=== PATIENT | male | born 1965 | race Hispanic/Latino ===

== ENCOUNTER 2019-09-30 14:10 | Inpatient (IN) | payer OTHER ==
[2019-09-30 14:54] LABS: #Lymphocytes 0.7 thou/uL (1.20-3.40); #Monocytes 0.3 thou/uL (0.11-0.59); #Neutrophils 2.4 thou/uL (1.40-6.50); %Basophils 0.8 % (0.0-1.0); %Eosinophils 0.5 % (0.0-10.0); %Lymphocytes 20.2 % (21.0-51.0); %Monocytes 8.5 % (0.0-10.0); %Neutrophils 70.1 % (42.0-75.0); Hemoglobin 14.6 g/dL (14.0-18.0); Mean Corpuscular HGB CONC 35.2 g/dL (32.0-36.0); Mean Corpuscular Hemoglobin 31.3 pg (27.0-31.0); Mean Corpuscular Volume 89.2 fL (78.0-98.0); Mean Platelet Volume 7.9 fL (7.4-10.4); Platelet Count 147 thou/uL (130-400); Red Blood Cell (RBC) Count 4.66 mill/uL (4.70-6.10); White Blood Cell (WBC) Count 3.4 thou/uL (4.8-10.8)
--- NOTE | 2019-09-30 15:00 | RAD ---
CHEST ONE VIEW: History: Shortness of breath, his brother is Covid positive and he is living with him. Comparison: 03-22-2018 FINDINGS: Minimal cardiomegaly with post underlying sternotomy. Inspiration is less than optimal with some patc hy alveolar and ground glass opacity changes in the right mid lower lung zone and left mid lung zone which certainly could be consistent with Covid pneumonia. No pleural effusion or confluent lobar pneu monia. IMPRESSION: Minimal patchy bilateral alveolar and ground glass opacity changes as above. This is evidence for chuck ateral atypical pneumonia including the viral pneumonias and Covid 19. POS: [facility]
[2019-09-30 15:14] LABS: ALT (SGPT) 34 U/L (8-55); AST (SGOT) 34 U/L (5-34); Albumin 3.5 g/dL (3.5-5.0); Alkaline Phosphatase 62 U/L (40-110); Anion Gap 13 mmol/L (10-20); BUN (Urea Nitrogen) 20 mg/dL (8.4-25.7); Bilirubin, Total 0.7 mg/dL (0.2-1.2); Calc. Creatinine Clearance 0 mL/min (70-130); Calcium 8.7 mg/dL (7.8-10.44); Carbon Dioxide 23 mmol/L (22-29); Chloride 102 mmol/L (98-107); Estimated GFR-MDRD 67; Globulin 3.3 g/dL (2.4-3.5); Glucose 223 mg/dL (70-105); Protein, Total 6.8 g/dL (6.0-8.3); Sodium 134 mmol/L (136-145)
[2019-09-30 15:37] LABS: CKMB 2.4 ng/mL (0-6.6)
[2019-09-30] MEDS ORDERED: Aspirin Chewable 81 MG TAB ONE (15:39)
[2019-09-30] MEDS ORDERED: Dextrose 50% Abboject 50 ML SYRINGE SLOW IVP PRN (16:57)
[2019-09-30] MEDS ORDERED: Dextrose 5% in Water 1,000 ML IV PRN (16:57)
[2019-09-30] MEDS ORDERED: Nitroglycerin 0.4 MG TAB (25 Tab Bottle) SL PRN (17:00)
[2019-09-30] MEDS ORDERED: Azithromycin 250 MG TAB PO SCH (17:30)
[2019-09-30 18:23] LABS: Troponin I 0.051 ng/mL (< 0.028)
--- NOTE | 2019-09-30 18:30 | HP ---
PRIMARY CARE PROVIDER: Real Hylton MD CHIEF COMPLAINT: Lightheaded. HISTORY OF PRESENT ILLNESS: This is a 54-year-old male with history of coronary artery disease and heart failure, unknown type or severity, diabetes type 2, dyslipidemia, hypertension, gout, who presents to the emergency room with a complaint of lightheadedness. The patient reports 10 days ago the onset of symptoms consistent with COVID. He reports he lives with his brother who was diagnosed with COVID, who developed symptoms at the same time and has subsequently been hospitalized. The patient reports that it has primarily been fevers, chills, body aches, nausea, vomiting, and diarrhea. Only the diarrhea has resolved. He states that he also complains of loss of taste, loss of appetite, and loss of smell. He reports the diarrhea resolved 2 days ago. The nausea and vomiting persist and he has been unable to eat much solid food, and has been able to drink some fluids. Due to not sleeping last night and today feeling lightheaded, he presented to the emergency room. He denies any cough, difficulty breathing, or chest pain. He has been taking Tylenol as needed for fevers. He denies any other medications for the current symptoms. He does state that today he did not take his furosemide, but he has been taking all of his usual medications. In the emergency room, the patient's had a blood pressure of 99/44 at one point in time. He has an x-ray consistent with COVID pneumonia. He received 324 mg of aspirin, 500 mL of normal saline, and hospitalist called for admission. ALLERGIES: NO KNOWN DRUG ALLERGIES. CURRENT MEDICATIONS: This is based on a list in the emergency room: 1. Allopurinol 100 mg daily. 2. Aspirin 81 mg daily. 3. Atorvastatin 40 mg daily. 4. Carvedilol 25 mg 2 tablets b.i.d. 5. Plavix 75 mg daily. 6. Zetia 10 mg daily. 7. Famotidine 20 mg 2 tablets once a day. 8. Furosemide 40 mg daily. 9. Gabapentin 300 mg t.i.d. 10. Glipizide unknown type 5 mg dose unknown how many times he takes in the day. 11. Hydralazine 50 mg t.i.d. 12. Lisinopril 10 mg b.i.d. 13. Metformin 750 mg daily. 14. Nifedipine 90 mg daily. 15. Nitroglycerin 0.4 mg as needed. He reports never using this. 16. Trulicity injections once weekly. PAST MEDICAL HISTORY: 1. Gout. 2. History of coronary artery disease and CABG. 3. Type 2 diabetes. 4. Dyslipidemia. 5. Hypertension. PAST SURGICAL HISTORY: 1. Appendectomy. 2. CABG. SOCIAL HISTORY: The patient denies alcohol or tobacco, lives with his who is his surrogate decision maker and he is a full code. FAMILY HISTORY: Significant for hypertension. REVIEW OF SYSTEMS: Negative for abdominal pain, chest pain, difficulty breathing, or change in urination. Positive only for the presenting complaints of nausea, vomiting, and diarrhea. All remaining review of systems are reviewed and negative. PHYSICAL EXAMINATION: VITAL SIGNS: Most recent blood pressure 148/72, pulse 76, respirations 27, saturations 100% on room air, temperature 98.5. GENERAL: Awake, alert, responsive, not in apparent distress. Able to speak in full sentences. HEENT: Pupils are equal and round. Oral mucosa is pink and dry. He is edentulous. NECK: Supple, nontender. LYMPHATICS: No palpable cervical or supraclavicular lymphadenopathy. LUNGS: Distant lungs sounds. Decreased breath sounds throughout. No audible wheezing, rhonchi, or rales. HEART: Distant heart sounds. No significant murmurs. Regular rhythm and rate. ABDOMEN: Soft with present bowel sounds, nontender, nondistended. EXTREMITIES: No edema, clubbing, or cyanosis. VASCULAR: 2+ dorsalis pedis pulses. SKIN: No visible rashes. NEUROLOGIC: No focal deficits. PSYCHIATRIC: Appears euthymic. LABORATORY DATA: CBC; 3.4, 14.6, 41.6, 147. Chemistry; 134, 4.0, 102, 23, 21.14, 223. T bilirubin 0.7, AST 34, ALT 34, alkaline phosphatase 62, total protein 6.8, albumin 3.5. BNP 145. Troponin 0.059. COVID test performed after evaluation of the patient and it is positive. Chest x-ray is personally reviewed, which shows minimal patchy bilateral alveolar and ground-glass opacity changes consistent with atypical pneumonia including viral pneumonia and COVID-19. EKG is personally reviewed, normal axis, sinus rhythm, inverted T-waves in V4 through V6. The lateral and inferior waves and abnormal R-wave progression. No ST changes. IMPRESSION: 1. COVID pneumonia. 2. Nausea, vomiting, fevers, chills, consistent with above. 3. History of heart failure unknown type or severity. 4. Coronary artery disease with history of coronary artery bypass graft, currently asymptomatic. 5. Diabetes mellitus, not optimally controlled. 6. Indeterminate troponin. 7. Leukopenia consistent with COVID pneumonia. 8. Dyslipidemia. 9. Hypertension. 10. Gout, asymptomatic. PLAN: 1. Observation status in the hospital. 2. Cover with Rocephin and azithromycin for pneumonia. 3. Fortunately at this time, the patient is not experiencing any respiratory distress or oxygen requirement. Given the onset of 10 days ago of the symptoms, this may limit his eligibility for certain medications. Review with Dr. Gomez if there are any changes. 4. Isolation precautions for COVID. 5. We will order carvedilol at half the usual dose with hold parameters. Reconcile other medications and add back based on bp readings and renal function. Follow for signs/sx of heart failure. 6. The patient appears dehydrated. We will start gentle IV fluid hydration and hold lasix. 7. Continue statin, acid adrianne, Zetia. 8. Continue the dual antiplatelet therapy. The patient came to us with. 9. Sliding scale insulin as needed. Holding the glipizide and metformin and Trulicity for now. 10. Anticipated length of stay is based on management of the patient's symptoms, which are GI in origin. 11. DVT prophylaxis. Because of COVID pneumonia, we will start Lovenox at DVT prophylaxis dosing. 12. GI prophylaxis. The patient is on an acid adrianne at home. We will resume that. 13. Code status is full. Surrogate decision maker is the patient's . The patient is at high risk given age, comorbidities, and current presentation. Reviewed the plan of care with the patient, no questions or further needs at end of evaluation. Job ID: [id number] [facility]
[2019-09-30] MEDS ORDERED: cefTRIAXone\\ROCEPHIN 1 GM in Sodium Chloride 0.9% 100 ML IVPB SCH (19:00)
[2019-09-30 19:02] VITALS: BMI 47.0
[2019-09-30] MEDS: Sodium Chloride 0.9% 1,000 ML IV SCH (19:23)
[2019-09-30] MEDS: Carvedilol 25 MG TAB PO SCH (19:24)
[2019-09-30] MEDS: Atorvastatin Calcium 40 MG TAB PO SCH (19:24)
[2019-09-30 21:38] LABS: Troponin I 0.037 ng/mL (< 0.028)
[2019-09-30] MEDS: Famotidine 20 MG TAB PO SCH (22:17)
[2019-10-01] MEDS: Ondansetron ODT 4 MG TAB PO PRN (01:53)
[2019-10-01] MEDS: Acetaminophen 325 MG TAB PO PRN ×2 (03:39→20:00)
[2019-10-01 05:01] LABS: #Lymphocytes 0.7 thou/uL (1.20-3.40); #Monocytes 0.4 thou/uL (0.11-0.59); #Neutrophils 3.1 thou/uL (1.40-6.50); %Basophils 0.1 % (0.0-1.0); %Eosinophils 0.4 % (0.0-10.0); %Lymphocytes 15.4 % (21.0-51.0); %Monocytes 9.1 % (0.0-10.0); %Neutrophils 75.1 % (42.0-75.0); Hemoglobin 13.5 g/dL (14.0-18.0); Mean Corpuscular HGB CONC 33.1 g/dL (32.0-36.0); Mean Corpuscular Hemoglobin 29.7 pg (27.0-31.0); Mean Corpuscular Volume 89.7 fL (78.0-98.0); Mean Platelet Volume 7.9 fL (7.4-10.4); Platelet Count 180 thou/uL (130-400); Red Blood Cell (RBC) Count 4.53 mill/uL (4.70-6.10); White Blood Cell (WBC) Count 4.2 thou/uL (4.8-10.8)
[2019-10-01 05:23] LABS: Anion Gap 14 mmol/L (10-20); BUN (Urea Nitrogen) 17 mg/dL (8.4-25.7); Calc. Creatinine Clearance 188 mL/min (70-130); Calcium 8.4 mg/dL (7.8-10.44); Carbon Dioxide 21 mmol/L (22-29); Chloride 103 mmol/L (98-107); Estimated GFR-MDRD 90; Glucose 208 mg/dL (70-105); Potassium 4.1 mmol/L (3.5-5.1); Sodium 134 mmol/L (136-145)
[2019-10-01] MEDS: Sodium Chloride 0.9% 1,000 ML IV SCH ×2 (06:02→17:21)
[2019-10-01] MEDS: Carvedilol 25 MG TAB PO SCH ×2 (08:45→17:21)
[2019-10-01] MEDS: Clopidogrel Bisulfate 75 MG TAB PO SCH (08:45)
[2019-10-01] MEDS: Aspirin 81 mg Enteric Coated Tablet PO SCH (08:45)
[2019-10-01] MEDS: Famotidine 20 MG TAB PO SCH ×2 (08:45→19:19)
[2019-10-01] MEDS: Enoxaparin Sodium 40 MG/0.4 ML SYRINGE SC SCH (08:45)
[2019-10-01] MEDS: Ezetimibe 10 MG TAB PO SCH (08:45)
[2019-10-01] MEDS ORDERED: Lidocaine 2% Viscous Solution 10 ML, Aluminum & Magnesium Hydroxide 30 ML SSW SCH (09:00)
[2019-10-01] MEDS ORDERED: Iopamidol-370 76% 500 ML 1 ML ONE (09:53)
[2019-10-01 10:36] LABS: Anion Gap 11 mmol/L (10-20); Carbon Dioxide 25 mmol/L (22-29); Chloride 103 mmol/L (98-107); Phosphorus 3.4 mg/dL (2.3-4.7); Sodium 135 mmol/L (136-145)
[2019-10-01] MEDS: HumaLOG 300 UNITS/3 ML VIAL SC PRN ×3 (11:38→19:58)
--- NOTE | 2019-10-01 11:41 | PDOC.HOSPP ---
- Subjective Encounter Date: 10/01/19 Encounter Time: 10:39 Subjective: Patient reports feeling generally unwell. States he had difficulty sleeping last night. He had nausea with a single episode of vomiting at 3am. States he got up to the chair and eventually fell asleep. Reports having a decreased appetite but did have some of his breakfast this morning without any subsequent vomiting or abdo pain. Reports no changes with his breathing. He continues to have occasional coughing fits, usually exacerbated by deep inspiration. States he broke out into a sweat last night. Denies any hemoptysis or chest pain. No leg swelling/calf pain. - Objective Vital Signs & Weight: Vital Signs (12 hours) Temp Pulse Resp BP BP BP Pulse Ox 10/01/19 08:40 98.5 F 73 22 H 125/59 L 93 L 10/01/19 06:30 98.8 F 10/01/19 03:50 101.0 F H 79 26 H 134/63 95 10/01/19 02:41 84 28 H 95 10/01/19 01:30 98.8 F 84 26 H 137/63 96 Weight Weight 309 lb 4.8 oz I&O: 09/30/19 10/01/19 10/02/19 06:59 06:59 06:59 Intake Total 1190 Output Total 700 Balance 490 Result Diagrams: 10/01/19 04:42 10/01/19 09:49 Additional Labs: Accuchecks 09/30/19 22:07 POC Glucose 198 H Radiology Reviewed by me: Yes EKG Reviewed by me: Yes Hospitalist ROS - Review of Systems Constitutional: reports: sweats (last night) Eyes: denies: pain, vision change, conjunctivae inflammation, eyelid inflammation, redness, other ENT: denies: ear pain, ear discharge, nose pain, nose discharge, nose congestion , mouth pain, mouth swelling, throat pain, throat swelling, other Respiratory: reports: cough, dry, SOB with excertion (usually when he has coughing fits) Cardiovascular: denies: chest pain, palpitations, orthopnea, paroxysmal noc. dyspnea, edema, light headedness, other Gastrointestinal: reports: nausea, vomiting. denies: abdominal pain, diarrhea, constipation, melena, hematochezia, other Genitourinary: denies: dysuria, frequency, incontinence, hematuria, retention, other Musculoskeletal: denies: neck pain, shoulder pain, arm pain, back pain, hand pain, leg pain, foot pain, other Skin: denies: rash, lesions, rosey, bruising, other Neurological: denies: weakness, numbness, incoordination, change in speech, confusion, seizures, other - Medication Medications: Active Medications Generic Name Dose Route Start Last Admin Trade Name Freq PRN Reason Stop Dose Admin Acetaminophen 650 mg 09/30/19 16:57 10/01/19 03:39 Tylenol PO 650 mg Q6H PRN Administration Headache/Fever/Mild Pain (1-3) Aspirin 81 mg 10/01/19 09:00 10/01/19 08:45 Ecotrin PO 81 mg DAILY DREA Administration Atorvastatin Calcium 40 mg 09/30/19 21:00 09/30/19 19:24 Lipitor PO 40 mg HS DREA Administration Carvedilol 25 mg 09/30/19 17:00 10/01/19 08:45 Coreg PO 25 mg BID-WM DERA Administration Clopidogrel Bisulfate 75 mg 10/01/19 09:00 10/01/19 08:45 Plavix PO 75 mg DAILY DREA Administration Ezetimibe 10 mg 10/01/19 09:00 10/01/19 08:45 Zetia PO 10 mg DAILY DREA Administration Enoxaparin Sodium 40 mg 10/01/19 09:00 10/01/19 08:45 Lovenox SC 40 mg 0900 DREA Administration Famotidine 20 mg 09/30/19 21:00 10/01/19 08:45 Pepcid PO 20 mg BID DREA Administration Ceftriaxone Sodium 1 gm/ 100 mls @ 200 mls/hr 09/30/19 19:00 09/30/19 19:25 Sodium Chloride IVPB 100 mls 1900 DREA Administration Sodium Chloride 1,000 mls @ 75 mls/hr 09/30/19 17:00 10/01/19 06:02 Normal Saline 0.9% IV 1,000 mls .[id number] DREA Administration Ondansetron HCl 4 mg 10/01/19 01:44 10/01/19 01:53 Zofran Odt PO 4 mg Q6H PRN Administration Nausea/Vomiting - Exam General Appearance: NAD Eye: PERRL, anicteric sclera ENT: dry oral mucosa Neck: supple, no lymphadenopathy Heart: RRR, normal peripheral pulses Respiratory: CTAB, no wheezes, no rales, no ronchi, normal chest expansion Gastrointestinal: soft, non-tender, non-distended, normal bowel sounds, no guarding, no rigidity Extremities: no cyanosis, no clubbing, no edema Skin: normal turgor, no lesions, no rashes Neurological: cranial nerve grossly intact, normal sensation to touch, no weakness, no focal deficits Musculoskeletal: normal tone, normal strength, no muscle wasting Psychiatric: normal affect, normal behavior, A&O x 3 Hosp A/P (1) Pneumonia due to COVID-19 virus Code(s): U07.1 - COVID-19; J12.89 - OTHER VIRAL PNEUMONIA Status: Acute (2) Nausea and vomiting Code(s): R11.2 - NAUSEA WITH VOMITING, UNSPECIFIED Status: Acute (3) Elevated troponin Code(s): R79.89 - OTHER SPECIFIED ABNORMAL FINDINGS OF BLOOD CHEMISTRY Status : Acute (4) Chronic CHF Code(s): I50.9 - HEART FAILURE, UNSPECIFIED Status: Chronic (5) Diabetes mellitus Code(s): E11.9 - TYPE 2 DIABETES MELLITUS WITHOUT COMPLICATIONS Status: Chronic (6) Hypertension Code(s): I10 - ESSENTIAL (PRIMARY) HYPERTENSION Status: Chronic (7) CAD (coronary artery disease) Code(s): I25.10 - ATHSCL HEART DISEASE OF [place] CORONARY ARTERY W/O ANG PCTRS Status: Chronic (8) Dyslipidemia Code(s): E78.5 - HYPERLIPIDEMIA, UNSPECIFIED Status: Chronic (9) Gout Code(s): M10.9 - GOUT, UNSPECIFIED Status: Chronic - Plan continue antibiotics Labs: D-dimer, ferritin and CRP every 48 hours If d-dimer elevated, will obtain CTA chest Monitor O2 sats. Febrile with sweats early this AM. On antibiotics for COVD pneumonia. Afebrile at present. If spikes temp again will obtain blood cultures. UA/UCx ordered. N/V resolved, no abdo pain. Monitor and continue prn anti-emetics. Consult Dr. Gomez (ID) Will change patient to inpatient status
[2019-10-01 15:49] LABS: Bacteria/HPF None Seen HPF (None Seen); Bilirubin Negative (Negative); Blood, Urine Negative (Negative); Clarity Clear (Clear); Glucose, Urine (Dipstick) 100 mg/dL (Negative); Ketone, Urine Negative (Negative); Leukocyte Negative Leu/uL (Negative); Nitrite Negative (Negative); Protein, Urine (Dipstick) 100 mg/dL (Neg-Trace); RBC/HPF 0-3 HPF (0-3); Specific Gravity, Urine 1.036 (1.002-1.036); Squamous Epithelial None Seen HPF (0-3); Urobilinogen Normal mg/dL (Less than 2); WBC/HPF 0-3 HPF (0-3)
[2019-10-01 15:51] LABS: Urine Culture Reflex No No
--- NOTE | 2019-10-01 16:20 | CT ---
CT PULMONARY ANGIOGRAM WITH IV CONTRAST AND 3D POSTPROCESSING: Date: 10/01/2019 HISTORY: Shortness of breath, elevated D-Dimer. COVID-19 positive. FINDINGS: The central pulmonary arteries are without filling defects. The peripheral branches cannot be evaluat ed due to absence of satisfactory contrast opacification. There are vascular calcifications without e vidence of aneurysmal dilatation of the thoracic aorta. No pleural or pericardial effusions are seen. There are scattered peripheral patchy ground-glass infiltrates in the lungs bilaterally. Upper abdom inal tomograms demonstrate a questionable tiny calcified gallstone. There is fatty infiltration of th e liver. IMPRESSION: 1. No CT evidence of central pulmonary embolism. 2. Findings consistent with COVID-19 pneumonia. 3. Fatty liver. 4. Probable cholelithiasis. POS: [facility]
--- NOTE | 2019-10-01 17:48 | CON ---
DATE OF CONSULTATION: 10/01/2019 REASON FOR CONSULTATION: COVID infection. HISTORY OF PRESENT ILLNESS: A 54-year-old with history of obesity, type 2 diabetes, hypertension, and coronary artery disease, who has had fever and respiratory symptoms for the past 10 days, apparently acquired from his brother. He has a ranch in [place] and his house is in [place]. His acquired COVID in [place] and has recovered and is living in [place] now. He currently is feeling a little better. He is not requiring oxygen supplementation. No headaches. Cough has not reappeared thus far. No chest pain or abdominal pain or diarrhea. No vomiting. Appetite is still preserved. MEDICAL HISTORY: 1. Gout. 2. Hypertension. 3. MT. 4. Type 2 diabetes. 5. Hyperlipidemia. 6. Hepatitis C. SURGICAL HISTORY: 1. Coronary artery bypass graft surgery. 2. Appendectomy. SOCIAL HISTORY: Never smoker. He is a rancher. ALLERGIES: NONE. MEDICATIONS: 1. Allopurinol. 2. Aspirin. 3. Atorvastatin. 4. Coreg. 5. Plavix. 6. Zetia. 7. Pepcid. 8. Furosemide. 9. Gabapentin. 10. Harvoni. It looks like he has hepatitis C too. 11. Hydralazine. 12. Lisinopril. 13. Metformin. PHYSICAL EXAMINATION: VITAL SIGNS: T-max 101 and he is afebrile at this time, he is breathing 20 to 22 times a minute, saturating at 98 on room air, BP 160/72. GENERAL: He appears in no distress. HEENT: Ocular movements conjugate. NECK: Supple. LUNGS: Symmetric, clear breath sounds. HEART: S1 and S2. Regular rate. ABDOMEN: Soft, not distended or tender. No ascites. No bladder distention. Prominent abdominal panniculus. EXTREMITIES: No joint inflammatory activity. No edema. LABORATORY DATA: White cell count 4.2, hemoglobin 13, and platelets 180 with 75% neutrophils. D-dimer 0.86. Ferritin 1600. CRP 7.27. Urinalysis was normal except for proteinuria. COVID positive. Chest CT with bilateral diffuse ground-glass opacities in all right and left pulmonary lobes. ASSESSMENT: Mild COVID pneumonia in the setting of diabetes, coronary artery disease, and hypertension. At this point, he does not merit any intervention other than monitoring his inflammatory markers. Discontinue antimicrobial therapy. He is right at the threshold for remdesivir, but he is not eligible for it, and tomorrow he is not going to be eligible for remdesivir even if he deteriorates. In that case, he would need a plasma and Decadron started, but he may not require it. Job ID: [id number]
[2019-10-01] MEDS ORDERED: Azithromycin 250 MG TAB PO SCH (18:00)
[2019-10-01] MEDS: Atorvastatin Calcium 40 MG TAB PO SCH (19:19)
[2019-10-02 05:33] LABS: #Eosinphils 0.1 thou/uL (0.0-0.7); #Lymphocytes 0.7 thou/uL (1.20-3.40); #Monocytes 0.4 thou/uL (0.11-0.59); #Neutrophils 2.3 thou/uL (1.40-6.50); %Basophils 0.8 % (0.0-1.0); %Lymphocytes 20.7 % (21.0-51.0); %Neutrophils 66.6 % (42.0-75.0); Hemoglobin 12.7 g/dL (14.0-18.0); Mean Corpuscular HGB CONC 34.1 g/dL (32.0-36.0); Mean Corpuscular Hemoglobin 30.9 pg (27.0-31.0); Mean Corpuscular Volume 90.6 fL (78.0-98.0); Mean Platelet Volume 7.5 fL (7.4-10.4); Platelet Count 183 thou/uL (130-400); RBC Distribution Width 11.9 % (11.5-14.5); White Blood Cell (WBC) Count 3.5 thou/uL (4.8-10.8)
[2019-10-02 06:00] LABS: ALT (SGPT) 31 U/L (8-55); AST (SGOT) 38 U/L (5-34); Albumin 3.1 g/dL (3.5-5.0); Alkaline Phosphatase 58 U/L (40-110); Anion Gap 10 mmol/L (10-20); BUN (Urea Nitrogen) 11 mg/dL (8.4-25.7); Bilirubin, Total 0.5 mg/dL (0.2-1.2); Calc. Creatinine Clearance 186 mL/min (70-130); Calcium 7.9 mg/dL (7.8-10.44); Carbon Dioxide 24 mmol/L (22-29); Chloride 106 mmol/L (98-107); Estimated GFR-MDRD 89; Globulin 3.1 g/dL (2.4-3.5); Glucose 174 mg/dL (70-105); Protein, Total 6.2 g/dL (6.0-8.3); Sodium 136 mmol/L (136-145)
--- NOTE | 2019-10-02 07:42 | PDOC.HOSPP ---
- Subjective Encounter Date: 10/02/19 Encounter Time: 11:00 Subjective: Patient felt better yesterday, but worse today with nausea, no appetite. Breathing about the same. No chest pain. Cough unchanged. - Objective Vital Signs & Weight: Vital Signs (12 hours) Temp Pulse Resp BP BP Pulse Ox 10/02/19 04:00 98.9 F 80 22 H 160/69 H 94 L 10/01/19 23:50 98.2 F 74 24 H 170/64 H 94 L 10/01/19 20:00 101.3 F H 85 28 H 154/67 H 93 L Weight Weight 309 lb 4.8 oz I&O: 10/01/19 10/02/19 10/03/19 06:59 06:59 06:59 Intake Total 1190 3025 Output Total 700 2000 Balance 490 1025 Result Diagrams: 10/02/19 05:06 10/02/19 05:06 Additional Labs: Accuchecks 10/01/19 10/01/19 10/01/19 19:30 15:38 11:48 POC Glucose 228 H 225 H 239 H Hospitalist ROS - Review of Systems Constitutional: denies: fever, chills Respiratory: reports: cough, shortness of breath Cardiovascular: denies: chest pain, palpitations Gastrointestinal: reports: nausea. denies: vomiting, abdominal pain, diarrhea, constipation - Medication Medications: Active Medications Generic Name Dose Route Start Last Admin Trade Name Freq PRN Reason Stop Dose Admin Acetaminophen 650 mg 09/30/19 16:57 10/01/19 20:00 Tylenol PO 650 mg Q6H PRN Administration Headache/Fever/Mild Pain (1-3) Aspirin 81 mg 10/01/19 09:00 10/01/19 08:45 Ecotrin PO 81 mg DAILY DREA Administration Atorvastatin Calcium 40 mg 09/30/19 21:00 10/01/19 19:19 Lipitor PO 40 mg HS DREA Administration Carvedilol 25 mg 09/30/19 17:00 10/01/19 17:21 Coreg PO 25 mg BID-WM DREA Administration Clopidogrel Bisulfate 75 mg 10/01/19 09:00 10/01/19 08:45 Plavix PO 75 mg DAILY DREA Administration Ezetimibe 10 mg 10/01/19 09:00 10/01/19 08:45 Zetia PO 10 mg DAILY DREA Administration Enoxaparin Sodium 40 mg 10/01/19 09:00 10/01/19 08:45 Lovenox SC 40 mg 0900 DREA Administration Famotidine 20 mg 09/30/19 21:00 10/01/19 19:19 Pepcid PO 20 mg BID DREA Administration Sodium Chloride 1,000 mls @ 75 mls/hr 09/30/19 17:00 10/01/19 17:21 Normal Saline 0.9% IV 1,000 mls .[id number] DREA Administration Insulin Human Lispro 0 units 09/30/19 16:57 10/01/19 15:30 Humalog SC 3 unit .MILD SLIDING SCALE PRN Administration Mild Correctional Scale Insulin Human Lispro 0 units 09/30/19 16:57 10/01/19 19:58 Humalog SC 2 unit .BEDTIME SLIDING SC PRN Administration Bedtime Correctional Scale Ondansetron HCl 4 mg 10/01/19 01:44 10/01/19 01:53 Zofran Odt PO 4 mg Q6H PRN Administration Nausea/Vomiting - Exam General Appearance: NAD ENT: moist mucosa Heart: RRR, no murmur, no gallops, no rubs Respiratory: CTAB, no wheezes, no rales, no ronchi Gastrointestinal: soft, non-tender, non-distended, normal bowel sounds Musculoskeletal: normal tone, normal strength Psychiatric: normal affect, normal behavior, A&O x 3 Hosp A/P (1) Pneumonia due to COVID-19 virus Code(s): U07.1 - COVID-19; J12.89 - OTHER VIRAL PNEUMONIA Status: Acute (2) Nausea and vomiting Code(s): R11.2 - NAUSEA WITH VOMITING, UNSPECIFIED Status: Acute (3) Elevated troponin Code(s): R79.89 - OTHER SPECIFIED ABNORMAL FINDINGS OF BLOOD CHEMISTRY Status : Acute Plan: Type 2 AMI due to Covid-19 pneumonia (4) CAD (coronary artery disease) Code(s): I25.10 - ATHSCL HEART DISEASE OF [place] CORONARY ARTERY W/O ANG PCTRS Status: Chronic (5) Diabetes mellitus Code(s): E11.9 - TYPE 2 DIABETES MELLITUS WITHOUT COMPLICATIONS Status: Chronic Qualifiers: Diabetes mellitus type: type 2 (6) Dyslipidemia Code(s): E78.5 - HYPERLIPIDEMIA, UNSPECIFIED Status: Chronic (7) Gout Code(s): M10.9 - GOUT, UNSPECIFIED Status: Chronic (8) Hypertension Code(s): I10 - ESSENTIAL (PRIMARY) HYPERTENSION Status: Chronic (9) Systolic congestive heart failure Code(s): I50.20 - UNSPECIFIED SYSTOLIC (CONGESTIVE) HEART FAILURE Status: Chronic Qualifiers: Heart failure chronicity: chronic Qualified Code(s): I50.22 - Chronic systolic (congestive) heart failure - Plan Patient on low dose of O2 NC this AM, though don't see any low sats recorded. Dr. Gomez following, will institute dexamethasone and convalescent plasma if deteriorates, giving half dose of therapeutic lovenox Last ECHO in 2012 with EF 30-35%, will get repeat ECHO if none more recent found Continue supportive care. Patient is at high risk fo complications due to his medical history
[2019-10-02] MEDS: Famotidine 20 MG TAB PO SCH ×2 (08:56→20:54)
[2019-10-02] MEDS: Aspirin 81 mg Enteric Coated Tablet PO SCH (08:56)
[2019-10-02] MEDS: Sodium Chloride 0.9% 1,000 ML IV SCH ×2 (08:56→21:50)
[2019-10-02] MEDS: Enoxaparin Sodium 40 MG/0.4 ML SYRINGE SC SCH (08:56)
[2019-10-02] MEDS: Carvedilol 25 MG TAB PO SCH ×2 (08:57→17:52)
[2019-10-02] MEDS: Clopidogrel Bisulfate 75 MG TAB PO SCH (08:57)
[2019-10-02] MEDS: Ezetimibe 10 MG TAB PO SCH (08:57)
[2019-10-02] MEDS: Ondansetron ODT 4 MG TAB PO PRN (08:57)
[2019-10-02] MEDS: HumaLOG 300 UNITS/3 ML VIAL SC PRN ×2 (12:58→17:51)
[2019-10-02] MEDS: Enoxaparin Sodium 80 MG/0.8 ML SYRINGE SC SCH (20:54)
[2019-10-02] MEDS: Atorvastatin Calcium 40 MG TAB PO SCH (20:54)
[2019-10-02] MEDS: Acetaminophen 325 MG TAB PO PRN (21:49)
[2019-10-03 05:11] LABS: #Eosinphils 0.1 thou/uL (0.0-0.7); #Lymphocytes 0.9 thou/uL (1.20-3.40); #Monocytes 0.6 thou/uL (0.11-0.59); #Neutrophils 2.6 thou/uL (1.40-6.50); %Basophils 0.1 % (0.0-1.0); %Eosinophils 3.1 % (0.0-10.0); %Lymphocytes 20.6 % (21.0-51.0); %Monocytes 13.9 % (0.0-10.0); %Neutrophils 62.4 % (42.0-75.0); Hemoglobin 12.2 g/dL (14.0-18.0); Mean Corpuscular HGB CONC 33.4 g/dL (32.0-36.0); Mean Corpuscular Hemoglobin 30.4 pg (27.0-31.0); Mean Corpuscular Volume 90.9 fL (78.0-98.0); Mean Platelet Volume 7.3 fL (7.4-10.4); Platelet Count 208 thou/uL (130-400); RBC Distribution Width 11.9 % (11.5-14.5); Red Blood Cell (RBC) Count 4.02 mill/uL (4.70-6.10); White Blood Cell (WBC) Count 4.1 thou/uL (4.8-10.8)
[2019-10-03] MEDS: Clopidogrel Bisulfate 75 MG TAB PO SCH (07:15)
[2019-10-03] MEDS: Enoxaparin Sodium 80 MG/0.8 ML SYRINGE SC SCH ×2 (07:15→20:34)
[2019-10-03] MEDS: Ezetimibe 10 MG TAB PO SCH (07:16)
[2019-10-03] MEDS: Aspirin 81 mg Enteric Coated Tablet PO SCH (07:16)
[2019-10-03] MEDS: Carvedilol 25 MG TAB PO SCH ×2 (07:16→17:56)
--- NOTE | 2019-10-03 08:02 | PDOC.HOSPP ---
- Subjective Encounter Date: 10/03/19 Encounter Time: 12:00 Subjective: Patient with improvement in appetite today. Kept snacking all night and that seemed to prevent any morning nausea. Still with cough and some PAN. Up to 4L NC currently. His brother is being discharged home on O2 soon and patient is eager to go home as well. I counselled him that he has continued to worsen and so not stable enough to send home with O2 at this point. - Objective Vital Signs & Weight: Vital Signs (12 hours) Temp Pulse Resp BP BP Pulse Ox 10/03/19 05:46 96 10/03/19 03:52 99 F 72 20 164/72 H 96 10/03/19 00:53 97.5 F L 74 24 H 151/69 H 94 L 10/02/19 20:55 97.8 F 79 30 H 162/70 H 92 L Weight Weight 309 lb 4.8 oz I&O: 10/02/19 10/03/19 10/04/19 06:59 06:59 06:59 Intake Total 3025 240 Output Total 1999 365 Balance 1025 -125 Result Diagrams: 10/03/19 04:36 10/02/19 05:06 Additional Labs: Accuchecks 10/02/19 10/02/19 10/02/19 21:06 16:25 12:47 POC Glucose 185 H 170 H 197 H Hospitalist ROS - Review of Systems Constitutional: denies: fever, chills Respiratory: reports: cough, shortness of breath, SOB with excertion Cardiovascular: denies: chest pain, palpitations Gastrointestinal: denies: nausea, vomiting, abdominal pain - Medication Medications: Active Medications Generic Name Dose Route Start Last Admin Trade Name Freq PRN Reason Stop Dose Admin Acetaminophen 650 mg 09/30/19 16:57 10/02/19 21:49 Tylenol PO 650 mg Q6H PRN Administration Headache/Fever/Mild Pain (1-3) Aspirin 81 mg 10/01/19 09:00 10/03/19 07:16 Ecotrin PO 81 mg DAILY DREA Administration Atorvastatin Calcium 40 mg 09/30/19 21:00 10/02/19 20:54 Lipitor PO 40 mg HS DREA Administration Carvedilol 25 mg 09/30/19 17:00 10/03/19 07:16 Coreg PO 25 mg BID-WM DREA Administration Clopidogrel Bisulfate 75 mg 10/01/19 09:00 10/03/19 07:15 Plavix PO 75 mg DAILY DREA Administration Ezetimibe 10 mg 10/01/19 09:00 10/03/19 07:16 Zetia PO 10 mg DAILY DREA Administration Enoxaparin Sodium 80 mg 10/02/19 21:00 10/03/19 07:15 Lovenox SC 80 mg 0900,2100 DREA Administration Sodium Chloride 1,000 mls @ 75 mls/hr 09/30/19 17:00 10/02/19 21:50 Normal Saline 0.9% IV 1,000 mls .[id number] DREA Administration Insulin Human Lispro 0 units 09/30/19 16:57 10/02/19 17:51 Humalog SC 2 unit .MILD SLIDING SCALE PRN Administration Mild Correctional Scale Insulin Human Lispro 0 units 09/30/19 16:57 10/01/19 19:58 Humalog SC 2 unit .BEDTIME SLIDING SC PRN Administration Bedtime Correctional Scale Ondansetron HCl 4 mg 10/01/19 01:44 10/02/19 08:57 Zofran Odt PO 4 mg Q6H PRN Administration Nausea/Vomiting Pantoprazole Sodium 40 mg 10/03/19 09:00 10/03/19 07:15 Protonix PO 40 mg DAILY DREA Administration - Exam General Appearance: NAD, awake alert ENT: moist mucosa Heart: RRR, no murmur, no gallops, no rubs Respiratory: CTAB, no wheezes, no rales, no ronchi Gastrointestinal: soft, non-tender, non-distended, normal bowel sounds Psychiatric: normal affect, normal behavior, A&O x 3 Hosp A/P (1) Pneumonia due to COVID-19 virus Code(s): U07.1 - COVID-19; J12.89 - OTHER VIRAL PNEUMONIA Status: Acute (2) Nausea and vomiting Code(s): R11.2 - NAUSEA WITH VOMITING, UNSPECIFIED Status: Acute (3) Elevated troponin Code(s): R79.89 - OTHER SPECIFIED ABNORMAL FINDINGS OF BLOOD CHEMISTRY Status : Acute (4) CAD (coronary artery disease) Code(s): I25.10 - ATHSCL HEART DISEASE OF [place] CORONARY ARTERY W/O ANG PCTRS Status: Chronic (5) Diabetes mellitus Code(s): E11.9 - TYPE 2 DIABETES MELLITUS WITHOUT COMPLICATIONS Status: Chronic Qualifiers: Diabetes mellitus type: type 2 (6) Dyslipidemia Code(s): E78.5 - HYPERLIPIDEMIA, UNSPECIFIED Status: Chronic (7) Gout Code(s): M10.9 - GOUT, UNSPECIFIED Status: Chronic (8) Hypertension Code(s): I10 - ESSENTIAL (PRIMARY) HYPERTENSION Status: Chronic (9) Systolic congestive heart failure Code(s): I50.20 - UNSPECIFIED SYSTOLIC (CONGESTIVE) HEART FAILURE Status: Chronic Qualifiers: Heart failure chronicity: chronic Qualified Code(s): I50.22 - Chronic systolic (congestive) heart failure - Plan Patient on increasing dose of O2 NC. Dr. Gomez following, worsening Covid-19 infection so starting dexamethasone and offering convalescent plasma to the patient, giving half dose of therapeutic lovenox Last ECHO in 2012 with EF 30-35% Continue supportive care. Patient is at high risk fo complications due to his medical history
[2019-10-03] MEDS: Sodium Chloride 0.9% 1,000 ML IV SCH ×2 (11:24→22:01)
[2019-10-03] MEDS ORDERED: Dexamethasone 6 MG in Sodium Chloride 0.9% 50 ML IVPB SCH (12:00)
--- NOTE | 2019-10-03 17:19 | PRG ---
DATE OF SERVICE: 10/03/2019 SUBJECTIVE: Mr. Frank is a bit more dyspneic and has more cough. No abdominal pain or diarrhea. OBJECTIVE: VITAL SIGNS: His T-max is 98.7. He is breathing anywhere from 20 to 30 times a minute, today's anywhere from 20 to 24. His O2 saturations were 93 and then dropped to 85 up to 95 with increase in O2 supplementation up to 4 L/min via nasal cannula. LUNGS: His lungs with symmetric air entry. HEART: S1-S2 regular rate. ABDOMEN: Soft, not distended. The D-dimer has not been repeated. The ferritin is down to 968. CRP is at 6.61. We started him today on Decadron and convalescent plasma. ASSESSMENT AND DISCUSSION: COVID pneumonia, now severe in the setting of diabetes, coronary artery disease, this is the 12th day of illness. Continue monitoring inflammatory markers and D-dimer. Job ID: [id number]
[2019-10-03] MEDS: HumaLOG 300 UNITS/3 ML VIAL SC PRN ×2 (18:09→22:03)
[2019-10-03] MEDS: Atorvastatin Calcium 40 MG TAB PO SCH (20:34)
[2019-10-04] MEDS ORDERED: hydrALAZINE 20 MG/ML VIAL SLOW IVP PRN ×2 (04:16→07:37)
[2019-10-04] MEDS: Sodium Chloride 0.9% 1,000 ML IV SCH ×2 (04:39→16:46)
[2019-10-04 05:12] LABS: #Lymphocytes 0.6 thou/uL (1.20-3.40); #Monocytes 0.5 thou/uL (0.11-0.59); #Neutrophils 3.2 thou/uL (1.40-6.50); %Eosinophils 0.2 % (0.0-10.0); %Lymphocytes 14.2 % (21.0-51.0); %Neutrophils 73.6 % (42.0-75.0); Hemoglobin 12.4 g/dL (14.0-18.0); Mean Corpuscular HGB CONC 33.8 g/dL (32.0-36.0); Mean Corpuscular Hemoglobin 30.6 pg (27.0-31.0); Mean Corpuscular Volume 90.6 fL (78.0-98.0); Mean Platelet Volume 7.5 fL (7.4-10.4); Platelet Count 258 thou/uL (130-400); RBC Distribution Width 11.7 % (11.5-14.5); Red Blood Cell (RBC) Count 4.05 mill/uL (4.70-6.10); White Blood Cell (WBC) Count 4.3 thou/uL (4.8-10.8)
[2019-10-04 05:35] LABS: Anion Gap 11 mmol/L (10-20); BUN (Urea Nitrogen) 11 mg/dL (8.4-25.7); CRP (Inflammatory) 7.95 mg/dL (= or < 0.5); Calc. Creatinine Clearance 212 mL/min (70-130); Calcium 7.9 mg/dL (7.8-10.44); Carbon Dioxide 25 mmol/L (22-29); Chloride 107 mmol/L (98-107); Estimated GFR-MDRD Greater than 90; Glucose 227 mg/dL (70-105); Potassium 4.2 mmol/L (3.5-5.1); Sodium 139 mmol/L (136-145)
[2019-10-04] MEDS: HumaLOG 300 UNITS/3 ML VIAL SC PRN ×3 (06:26→17:11)
--- NOTE | 2019-10-04 07:37 | PDOC.HOSPP ---
- Subjective Encounter Date: 10/04/19 Encounter Time: 10:30 Subjective: Patient reports feeling better. Mild PAN with ambulating to the bathroom. Still needing 4L O2 via NC. No chest pain. No more N/V. Eating well. - Objective Vital Signs & Weight: Vital Signs (12 hours) Temp Pulse Pulse Resp BP BP BP 10/04/19 04:43 69 188/81 H 10/04/19 03:45 98.1 F 58 L 22 H 199/84 H 10/04/19 01:15 98.5 F 64 20 176/87 H 10/04/19 00:07 98.1 F 62 20 160/72 H 10/04/19 00:05 98.1 F 62 20 160/72 H 10/03/19 23:50 97.9 F 66 20 149/68 H 10/03/19 20:43 98.2 F 75 22 H 157/67 H Pulse Ox 10/04/19 04:43 10/04/19 03:45 97 10/04/19 01:15 95 10/04/19 00:07 10/04/19 00:05 96 10/03/19 23:50 10/03/19 20:43 95 Weight Weight 309 lb 4.8 oz I&O: 10/03/19 10/04/19 10/05/19 06:59 06:59 06:59 Intake Total 240 1620 Output Total 365 1600 Balance -125 20 Result Diagrams: 10/04/19 05:00 10/04/19 05:00 Additional Labs: Accuchecks 10/03/19 10/03/19 10/03/19 22:07 18:09 12:05 POC Glucose 328 H 225 H 159 H 10/03/19 06:10 POC Glucose 137 H Hospitalist ROS - Review of Systems Constitutional: denies: fever, chills Respiratory: reports: SOB with excertion. denies: cough, shortness of breath Cardiovascular: denies: chest pain, palpitations Gastrointestinal: denies: nausea, vomiting, abdominal pain - Medication Medications: Active Medications Generic Name Dose Route Start Last Admin Trade Name Freq PRN Reason Stop Dose Admin Acetaminophen 650 mg 09/30/19 16:57 10/02/19 21:49 Tylenol PO 650 mg Q6H PRN Administration Headache/Fever/Mild Pain (1-3) Aspirin 81 mg 10/01/19 09:00 10/03/19 07:16 Ecotrin PO 81 mg DAILY DREA Administration Atorvastatin Calcium 40 mg 09/30/19 21:00 10/03/19 20:34 Lipitor PO 40 mg HS DREA Administration Carvedilol 25 mg 09/30/19 17:00 10/03/19 17:56 Coreg PO 25 mg BID-WM DREA Administration Clopidogrel Bisulfate 75 mg 10/01/19 09:00 10/03/19 07:15 Plavix PO 75 mg DAILY DREA Administration Ezetimibe 10 mg 10/01/19 09:00 10/03/19 07:16 Zetia PO 10 mg DAILY DREA Administration Enoxaparin Sodium 80 mg 10/02/19 21:00 10/03/19 20:34 Lovenox SC 80 mg 0900,2100 [facility] Administration Hydralazine HCl 5 mg 10/04/19 04:16 10/04/19 04:43 Apresoline SLOW IVP 5 mg Q4H PRN Administration SBP Greater Than 180 Sodium Chloride 1,000 mls @ 50 mls/hr 10/04/19 04:30 10/04/19 04:39 Normal Saline 0.9% IV Not Given .Q20H DREA Insulin Human Lispro 0 units 09/30/19 16:57 10/04/19 06:26 Humalog SC 3 unit .MILD SLIDING SCALE PRN Administration Mild Correctional Scale Insulin Human Lispro 0 units 09/30/19 16:57 10/03/19 22:03 Humalog SC 4 unit .BEDTIME SLIDING SC PRN Administration Bedtime Correctional Scale Ondansetron HCl 4 mg 10/01/19 01:44 10/02/19 08:57 Zofran Odt PO 4 mg Q6H PRN Administration Nausea/Vomiting Pantoprazole Sodium 40 mg 10/03/19 09:00 10/03/19 07:15 Protonix PO 40 mg DAILY [facility] Administration - Exam General Appearance: NAD, awake alert ENT: moist mucosa Heart: RRR, no murmur, no gallops, no rubs Respiratory: CTAB, no wheezes, no rales, no ronchi Gastrointestinal: soft, non-tender, non-distended, normal bowel sounds Psychiatric: normal affect, normal behavior, A&O x 3 Hosp A/P (1) Pneumonia due to COVID-19 virus Code(s): U07.1 - COVID-19; J12.89 - OTHER VIRAL PNEUMONIA Status: Acute (2) Acute respiratory failure with hypoxia Code(s): J96.01 - ACUTE RESPIRATORY FAILURE WITH HYPOXIA Status: Acute (3) Nausea and vomiting Code(s): R11.2 - NAUSEA WITH VOMITING, UNSPECIFIED Status: Acute (4) Elevated troponin Code(s): R79.89 - OTHER SPECIFIED ABNORMAL FINDINGS OF BLOOD CHEMISTRY Status : Acute (5) CAD (coronary artery disease) Code(s): I25.10 - ATHSCL HEART DISEASE OF [place] CORONARY ARTERY W/O ANG PCTRS Status: Chronic (6) Diabetes mellitus Code(s): E11.9 - TYPE 2 DIABETES MELLITUS WITHOUT COMPLICATIONS Status: Chronic Qualifiers: Diabetes mellitus type: type 2 (7) Dyslipidemia Code(s): E78.5 - HYPERLIPIDEMIA, UNSPECIFIED Status: Chronic (8) Gout Code(s): M10.9 - GOUT, UNSPECIFIED Status: Chronic (9) Hypertension Code(s): I10 - ESSENTIAL (PRIMARY) HYPERTENSION Status: Chronic (10) Systolic congestive heart failure Code(s): I50.20 - UNSPECIFIED SYSTOLIC (CONGESTIVE) HEART FAILURE Status: Chronic Qualifiers: Heart failure chronicity: chronic Qualified Code(s): I50.22 - Chronic systolic (congestive) heart failure - Plan Patient on stable dose of 4L O2 NC. Dr. Gomez following, worsened Covid-19 infection so starting dexamethasone and gave convalescent plasma to the patient, giving half dose of therapeutic lovenox Last ECHO in 2012 with EF 30-35% Blood pressure running high. Pulse on low end, so will add amlodipine. Continue supportive care. Patient is at high risk of complications due to his medical history. Patient possibly stabilizing. Will need to watch for a couple more days. If stable possibly home on home O2.
[2019-10-04] MEDS: Clopidogrel Bisulfate 75 MG TAB PO SCH (08:22)
[2019-10-04] MEDS: Amlodipine 5 MG TAB PO SCH (08:22)
[2019-10-04] MEDS: Dexamethasone 6 MG in Sodium Chloride 0.9% 50 ML IVPB SCH (08:22)
[2019-10-04] MEDS: Ezetimibe 10 MG TAB PO SCH (08:22)
[2019-10-04] MEDS: Carvedilol 25 MG TAB PO SCH ×2 (08:22→16:46)
[2019-10-04] MEDS: Aspirin 81 mg Enteric Coated Tablet PO SCH (08:22)
[2019-10-04] MEDS: Enoxaparin Sodium 80 MG/0.8 ML SYRINGE SC SCH ×2 (08:23→20:24)
[2019-10-04] MEDS ORDERED: Dexamethasone 4 mg/ml Vial IVPB SCH (09:00)
[2019-10-04] MEDS: Atorvastatin Calcium 40 MG TAB PO SCH (20:25)
[2019-10-04] MEDS ORDERED: hydrALAZINE 25 MG TAB PO SCH (23:30)
[2019-10-05 01:06] LABS: Anion Gap 13 mmol/L (10-20); BUN (Urea Nitrogen) 15 mg/dL (8.4-25.7); Calc. Creatinine Clearance 200 mL/min (70-130); Calcium 7.8 mg/dL (7.8-10.44); Carbon Dioxide 22 mmol/L (22-29); Chloride 108 mmol/L (98-107); Estimated GFR-MDRD Greater than 90; Glucose 356 mg/dL (70-105); Magnesium 2.1 mg/dL (1.6-2.6); Sodium 139 mmol/L (136-145)
[2019-10-05] MEDS: Sodium Chloride 0.9% 1,000 ML IV SCH (06:06)
[2019-10-05] MEDS: HumaLOG 300 UNITS/3 ML VIAL SC PRN ×4 (06:13→21:05)
[2019-10-05] MEDS: Clopidogrel Bisulfate 75 MG TAB PO SCH (07:41)
[2019-10-05] MEDS: Ezetimibe 10 MG TAB PO SCH (07:41)
[2019-10-05] MEDS: hydrALAZINE 25 MG TAB PO SCH ×3 (07:41→20:41)
[2019-10-05] MEDS: Aspirin 81 mg Enteric Coated Tablet PO SCH (07:41)
[2019-10-05] MEDS: Enoxaparin Sodium 80 MG/0.8 ML SYRINGE SC SCH ×2 (07:41→20:41)
[2019-10-05] MEDS: Amlodipine 5 MG TAB PO SCH (07:41)
[2019-10-05] MEDS: Carvedilol 25 MG TAB PO SCH ×2 (07:41→16:20)
--- NOTE | 2019-10-05 07:44 | PDOC.HOSPP ---
- Subjective Encounter Date: 10/05/19 - Objective Vital Signs & Weight: Vital Signs (12 hours) Temp Pulse Resp BP BP Pulse Ox 10/05/19 04:00 98.2 F 86 18 157/89 H 94 L 10/04/19 23:30 98.4 F 70 20 187/77 H 95 10/04/19 20:32 64 20 182/72 H 95 10/04/19 20:00 95 Weight Weight 309 lb 4.8 oz I&O: 10/04/19 10/05/19 10/06/19 06:59 06:59 06:59 Intake Total 1620 3284 Output Total 1600 1650 Balance 20 1634 Result Diagrams: 10/04/19 05:00 10/05/19 00:30 Additional Labs: Accuchecks 10/05/19 10/04/19 10/04/19 06:15 16:55 12:40 POC Glucose 243 H 330 H 304 H Hospitalist ROS - Medication Medications: Active Medications Generic Name Dose Route Start Last Admin Trade Name Freq PRN Reason Stop Dose Admin Acetaminophen 650 mg 09/30/19 16:57 10/02/19 21:49 Tylenol PO 650 mg Q6H PRN Administration Headache/Fever/Mild Pain (1-3) Aspirin 81 mg 10/01/19 09:00 10/05/19 07:41 Ecotrin PO 81 mg DAILY DREA Administration Atorvastatin Calcium 40 mg 09/30/19 21:00 10/04/19 20:25 Lipitor PO 40 mg HS DREA Administration Carvedilol 25 mg 09/30/19 17:00 10/05/19 07:41 Coreg PO 25 mg BID-WM DREA Administration Clopidogrel Bisulfate 75 mg 10/01/19 09:00 10/05/19 07:41 Plavix PO 75 mg DAILY DREA Administration Ezetimibe 10 mg 10/01/19 09:00 10/05/19 07:41 Zetia PO 10 mg DAILY DREA Administration Enoxaparin Sodium 80 mg 10/02/19 21:00 10/05/19 07:41 Lovenox SC 80 mg 0900,2100 DREA Administration Hydralazine HCl 10 mg 10/04/19 07:37 10/04/19 20:38 Apresoline SLOW IVP 10 mg Q4H PRN Administration SBP Greater Than 180 Hydralazine HCl 50 mg 10/05/19 09:00 10/05/19 07:41 Apresoline PO 50 mg TID DREA Administration Dexamethasone 6 mg/ Sodium 50.6 mls @ 101.2 mls/hr 10/04/19 09:00 10/04/19 08 :22 Chloride IVPB 50.6 mls DAILY DREA Administration Sodium Chloride 1,000 mls @ 50 mls/hr 10/04/19 04:30 10/05/19 06:06 Normal Saline 0.9% IV 1,000 mls .Q20H DREA Administration Insulin Human Lispro 0 units 09/30/19 16:57 10/05/19 06:13 Humalog SC 3 unit .MILD SLIDING SCALE PRN Administration Mild Correctional Scale Insulin Human Lispro 0 units 09/30/19 16:57 10/03/19 22:03 Humalog SC 4 unit .BEDTIME SLIDING SC PRN Administration Bedtime Correctional Scale Ondansetron HCl 4 mg 10/01/19 01:44 10/02/19 08:57 Zofran Odt PO 4 mg Q6H PRN Administration Nausea/Vomiting Pantoprazole Sodium 40 mg 10/03/19 09:00 10/05/19 07:41 Protonix PO 40 mg DAILY DREA Administration Hosp A/P (1) Pneumonia due to COVID-19 virus Code(s): U07.1 - COVID-19; J12.89 - OTHER VIRAL PNEUMONIA Status: Acute (2) Acute respiratory failure with hypoxia Code(s): J96.01 - ACUTE RESPIRATORY FAILURE WITH HYPOXIA Status: Acute (3) Nausea and vomiting Code(s): R11.2 - NAUSEA WITH VOMITING, UNSPECIFIED Status: Acute (4) Elevated troponin Code(s): R79.89 - OTHER SPECIFIED ABNORMAL FINDINGS OF BLOOD CHEMISTRY Status : Acute (5) CAD (coronary artery disease) Code(s): I25.10 - ATHSCL HEART DISEASE OF [place] CORONARY ARTERY W/O ANG PCTRS Status: Chronic (6) Diabetes mellitus Code(s): E11.9 - TYPE 2 DIABETES MELLITUS WITHOUT COMPLICATIONS Status: Chronic Qualifiers: Diabetes mellitus type: type 2 (7) Dyslipidemia Code(s): E78.5 - HYPERLIPIDEMIA, UNSPECIFIED Status: Chronic (8) Gout Code(s): M10.9 - GOUT, UNSPECIFIED Status: Chronic (9) Hypertension Code(s): I10 - ESSENTIAL (PRIMARY) HYPERTENSION Status: Chronic (10) Systolic congestive heart failure Code(s): I50.20 - UNSPECIFIED SYSTOLIC (CONGESTIVE) HEART FAILURE Status: Chronic Qualifiers: Heart failure chronicity: chronic Qualified Code(s): I50.22 - Chronic systolic (congestive) heart failure - Plan Patient on stable dose of 4L O2 NC. Dr. Gomez following, worsened Covid-19 infection so starting dexamethasone and gave convalescent plasma to the patient, giving half dose of therapeutic lovenox Last ECHO in 2012 with EF 30-35% Patient with improved po intake, blood sugars elevated, will resume home BP/DM/ fluid meds. Continue supportive care. Patient is at high risk of complications due to his medical history. Patient possibly stabilizing. Will need to watch for a couple more days. If stable possibly home on home O2.
[2019-10-05] MEDS ORDERED: Lisinopril 10 MG TAB PO SCH (09:00)
[2019-10-05] MEDS: Allopurinol 100 MG TAB PO SCH (09:11)
[2019-10-05] MEDS: NIFEdipine XL 90 MG TAB PO SCH (09:11)
[2019-10-05] MEDS: metFORMIN 500 MG TAB PO SCH ×2 (09:11→20:41)
[2019-10-05] MEDS: Dexamethasone 6 MG in Sodium Chloride 0.9% 50 ML IVPB SCH (09:12)
[2019-10-05] MEDS: Furosemide 40 MG TAB PO SCH (09:12)
[2019-10-05] MEDS ORDERED: Zolpidem Tartrate 5 MG TAB PO PRN (10:07)
--- NOTE | 2019-10-05 19:42 | CON ---
DATE OF CONSULTATION: HISTORY OF PRESENT ILLNESS: Bill Frank is a 54-year-old male, who was followed with Dr. Carpenter for many years. He was now admitted with COVID. He initially presented in October 2011 with chest pain and heart failure. His ejection fraction was 15% and he underwent cardiac catheterization and was found to have disease in his LAD - diagonal at the bifurcation. It was initially felt that his risk for CABG was prohibitively high with EF of 15%. His ejection fraction improved to about 25%. He was re-catheterized and underwent CABG on April 09, 2011 with a WEISS to the LAD and vein graft to the diagonal. He has continued to be followed in the office. Most recently he was seen in June of 2019. He denied any chest discomfort, shortness of breath, leg edema, lightheadedness, dizziness, syncope, etc. He also had an echocardiogram performed on August 28, 2019. His ejection fraction, which usually was 40%-45%, had fallen to 35%-40%. There was moderate left atrial enlargement. He now is admitted on September 29. Ten days prior to that, he developed fever, chills, body aches, nausea, vomiting, and diarrhea and the diarrhea ultimately resolved. He had a loss of appetite and loss of taste and smell. He had increasing difficulty in eating and came to the emergency room. He was COVID positive. Chest x-ray is consistent with COVID pneumonia. Since being admitted on September 30 at 7:08 a.m., he had a 4-beat run of nonsustained ventricular tachycardia. Then, last night around 11 p.m., he had episode of accelerated idioventricular rhythm with a rate of 75 per minute. Mr. Frank denies any chest pains or shortness of breath at the present time. He denies any palpitations or lower extremity edema. PAST MEDICAL HISTORY: Coronary artery disease, ischemic cardiomyopathy, diabetes, hypertension, and hypercholesterolemia. PAST SURGICAL HISTORY: Bypass surgery and appendectomy. MEDICATIONS: When he was last seen in the office are; 1. Allopurinol 100 mg daily. 2. Trulicity 1.5 mg. 3. Aspirin 81 daily. 4. Atorvastatin 40 daily. 5. Lisinopril 10 mg b.i.d. 6. Nifedipine 90 mg ER q.a.m. 7. Hydralazine 50 mg t.i.d. 8. Plavix 75 mg daily. 9. Carvedilol 25 mg - two tablets b.i.d. 10. Pepcid 40 mg at bedtime. 11. Furosemide 40 mg q.a.m. 12. Zetia 10 mg daily. 13. Metformin 750 daily. 14. Gabapentin 300 mg at bedtime. ALLERGIES: NONE. SOCIAL HISTORY: He does not smoke. He rarely drinks alcohol. FAMILY HISTORY: Negative for myocardial infarction in the immediate family. REVIEW OF SYSTEMS: A 10-point review of systems is otherwise unremarkable. PHYSICAL EXAMINATION: Blood pressure 150/67 and pulse of 73. Physical examination was deferred due to COVID positivity. LABORATORY DATA: EKG revealed normal sinus rhythm with lateral T-wave changes. Sodium 139, potassium 4.0, chloride 108, carbon dioxide 22, BUN 15, and creatinine 0.83. Hemoglobin 12.4, hematocrit 36.7, white count 4300, and platelets 258, 000. D-dimer 1.35. Chest CT revealed no evidence of pulmonary embolism. There is a finding of COVID pneumonia. IMPRESSION: 1. COVID pneumonia. 2. Nonsustained ventricular tachycardia and accelerated idioventricular rhythm. Both of these were probably due to only being on carvedilol 25 mg b.i.d. in the hospital, where is at home, he is on 50 b.i.d. 3. Ischemic cardiomyopathy with recent reduction in ejection fraction from 40% to 45% to that is here 35%-40%. 4. Status post coronary artery bypass grafting x2 with left internal mammary artery to the left anterior descending and vein graft to the diagonal. 5. History of moderate aortic insufficiency; however, on most recent echo was only trivial. 6. Diabetes. 7. Hypercholesterolemia. 8. Obesity. 9. Hypertension. PLAN: The patient will be restarted on his usual home dose of carvedilol 50 mg b.i.d. Also with drop in his ejection fraction, lisinopril will be discontinued and 48 hours later, he will be placed on Entresto. Over time, the dose of Entresto will probably be increased and maybe some of his other antihypertensive medications can be reduced or discontinued. Job ID: [id number] [facility]
[2019-10-05] MEDS: Atorvastatin Calcium 40 MG TAB PO SCH (20:42)
[2019-10-05] MEDS: Melatonin 3 MG TAB PO SCH (20:42)
[2019-10-05] MEDS: Gabapentin 300 MG CAP PO SCH (20:42)
[2019-10-06] MEDS: HumaLOG 300 UNITS/3 ML VIAL SC PRN ×4 (06:35→21:15)
--- NOTE | 2019-10-06 08:01 | PDOC.HOSPP ---
- Subjective Encounter Date: 10/06/19 Encounter Time: 14:00 Subjective: Patient continuing to feel a bit better. Oxygen weaned down some. - Objective Vital Signs & Weight: Vital Signs (12 hours) Temp Pulse Resp BP BP Pulse Ox 10/06/19 04:40 97.8 F 73 22 H 145/63 H 95 10/06/19 00:19 98.2 F 78 20 134/61 94 L 10/05/19 20:45 97.8 F 74 20 131/60 97 Weight Weight 309 lb 4.8 oz I&O: 10/05/19 10/06/19 10/07/19 06:59 06:59 06:59 Intake Total 3284 1770 Output Total 1650 2450 Balance 1634 -680 Result Diagrams: 10/04/19 05:00 10/05/19 00:30 Additional Labs: Accuchecks 10/06/19 10/05/19 10/05/19 06:36 20:52 18:10 POC Glucose 246 H 389 H 355 H 10/05/19 12:46 POC Glucose 373 H Hospitalist ROS - Review of Systems Constitutional: denies: fever, chills Respiratory: reports: cough, SOB with excertion. denies: shortness of breath Cardiovascular: denies: chest pain, palpitations Gastrointestinal: denies: nausea, vomiting, abdominal pain - Medication Medications: Active Medications Generic Name Dose Route Start Last Admin Trade Name Freq PRN Reason Stop Dose Admin Acetaminophen 650 mg 09/30/19 16:57 10/02/19 21:49 Tylenol PO 650 mg Q6H PRN Administration Headache/Fever/Mild Pain (1-3) Allopurinol 200 mg 10/05/19 09:00 10/05/19 09:11 Zyloprim PO 200 mg DAILY DREA Administration Aspirin 81 mg 10/01/19 09:00 10/05/19 07:41 Ecotrin PO 81 mg DAILY DREA Administration Atorvastatin Calcium 40 mg 09/30/19 21:00 10/05/19 20:42 Lipitor PO 40 mg HS DREA Administration Clopidogrel Bisulfate 75 mg 10/01/19 09:00 10/05/19 07:41 Plavix PO 75 mg DAILY DREA Administration Ezetimibe 10 mg 10/01/19 09:00 10/05/19 07:41 Zetia PO 10 mg DAILY DREA Administration Enoxaparin Sodium 80 mg 10/02/19 21:00 10/05/19 20:41 Lovenox SC 80 mg 0900,2100 DREA Administration Furosemide 40 mg 10/05/19 09:00 10/05/19 09:12 Lasix PO 40 mg DAILY DREA Administration Gabapentin 300 mg 10/05/19 21:00 10/05/19 20:42 Neurontin PO 300 mg HS DREA Administration Glipizide 5 mg 10/05/19 08:00 10/05/19 09:12 Glucotrol Xl PO 5 mg QAM-WM DREA Administration Hydralazine HCl 10 mg 10/04/19 07:37 10/04/19 20:38 Apresoline SLOW IVP 10 mg Q4H PRN Administration SBP Greater Than 180 Hydralazine HCl 50 mg 10/05/19 09:00 10/05/19 20:41 Apresoline PO 50 mg TID DREA Administration Dexamethasone 6 mg/ Sodium 50.6 mls @ 101.2 mls/hr 10/04/19 09:00 10/05/19 09 :12 Chloride IVPB 50.6 mls DAILY DREA Administration Insulin Human Lispro 0 units 09/30/19 16:57 10/06/19 06:35 Humalog SC 3 unit .MILD SLIDING SCALE PRN Administration Mild Correctional Scale Insulin Human Lispro 0 units 09/30/19 16:57 10/05/19 21:05 Humalog SC 5 unit .BEDTIME SLIDING SC PRN Administration Bedtime Correctional Scale Melatonin 3 mg 10/05/19 21:00 10/05/19 20:42 Melatonin PO 3 mg HS DREA Administration Metformin HCl 375 mg 10/05/19 09:00 10/05/19 20:41 Glucophage PO 375 mg BID DREA Administration Nifedipine 90 mg 10/05/19 09:00 10/05/19 09:11 Procardia Xl PO 90 mg DAILY DREA Administration Ondansetron HCl 4 mg 10/01/19 01:44 10/02/19 08:57 Zofran Odt PO 4 mg Q6H PRN Administration Nausea/Vomiting Pantoprazole Sodium 40 mg 10/03/19 09:00 10/05/19 07:41 Protonix PO 40 mg DAILY DREA Administration Sodium Chloride 10 ml 10/05/19 21:00 10/05/19 20:42 Flush - Normal Saline IVF 10 ml Q12HR DREA Administration - Exam General Appearance: NAD, awake alert ENT: moist mucosa Heart: RRR, no murmur, no gallops, no rubs Respiratory: CTAB, no wheezes, no rales, no ronchi Gastrointestinal: soft, non-tender, non-distended, normal bowel sounds Psychiatric: normal affect, normal behavior, A&O x 3 Hosp A/P (1) Pneumonia due to COVID-19 virus Code(s): U07.1 - COVID-19; J12.89 - OTHER VIRAL PNEUMONIA Status: Acute (2) Acute respiratory failure with hypoxia Code(s): J96.01 - ACUTE RESPIRATORY FAILURE WITH HYPOXIA Status: Acute (3) Nausea and vomiting Code(s): R11.2 - NAUSEA WITH VOMITING, UNSPECIFIED Status: Acute (4) Elevated troponin Code(s): R79.89 - OTHER SPECIFIED ABNORMAL FINDINGS OF BLOOD CHEMISTRY Status : Acute (5) CAD (coronary artery disease) Code(s): I25.10 - ATHSCL HEART DISEASE OF [place] CORONARY ARTERY W/O ANG PCTRS Status: Chronic (6) Diabetes mellitus Code(s): E11.9 - TYPE 2 DIABETES MELLITUS WITHOUT COMPLICATIONS Status: Chronic Qualifiers: Diabetes mellitus type: type 2 (7) Dyslipidemia Code(s): E78.5 - HYPERLIPIDEMIA, UNSPECIFIED Status: Chronic (8) Gout Code(s): M10.9 - GOUT, UNSPECIFIED Status: Chronic (9) Hypertension Code(s): I10 - ESSENTIAL (PRIMARY) HYPERTENSION Status: Chronic (10) Systolic congestive heart failure Code(s): I50.20 - UNSPECIFIED SYSTOLIC (CONGESTIVE) HEART FAILURE Status: Chronic Qualifiers: Heart failure chronicity: chronic Qualified Code(s): I50.22 - Chronic systolic (congestive) heart failure - Plan Patient on stable dose of 2L O2 NC. Dr. Gomez following, worsened Covid-19 infection started dexamethasone and gave convalescent plasma to the patient, giving half dose of therapeutic lovenox Dexametasone 6 mg daily day 05/28 Last ECHO in 2012 with EF 30-35% Patient with improved po intake, blood sugars elevated from steroids, resumed home meds, add dose of insulin. Continue supportive care. Patient is at high risk of complications due to his medical history. Patient possibly stabilizing. Will need to watch for another day. If stable possibly home on home O2. Idioventriculer rhythm yesterday, Dr. Chahal consulted, increased coreg back to home dose of 50mg BID, stopped lisinopril, and tomorrow will start low dose Entresto due to decreased EF.
[2019-10-06] MEDS: Dexamethasone 6 MG in Sodium Chloride 0.9% 50 ML IVPB SCH (08:26)
[2019-10-06] MEDS: Enoxaparin Sodium 80 MG/0.8 ML SYRINGE SC SCH ×2 (08:26→21:01)
[2019-10-06] MEDS: hydrALAZINE 25 MG TAB PO SCH ×3 (08:27→21:01)
[2019-10-06] MEDS: metFORMIN 500 MG TAB PO SCH ×2 (08:27→21:01)
[2019-10-06] MEDS: Allopurinol 100 MG TAB PO SCH (08:27)
[2019-10-06] MEDS: Aspirin 81 mg Enteric Coated Tablet PO SCH (08:27)
[2019-10-06] MEDS: Clopidogrel Bisulfate 75 MG TAB PO SCH (08:27)
[2019-10-06] MEDS: Furosemide 40 MG TAB PO SCH (08:27)
[2019-10-06] MEDS: NIFEdipine XL 90 MG TAB PO SCH (08:28)
[2019-10-06] MEDS: Ezetimibe 10 MG TAB PO SCH (08:28)
[2019-10-06] MEDS: Carvedilol 25 MG TAB PO SCH ×2 (08:28→16:54)
[2019-10-06] MEDS: Insulin Glargine 10 UNITS in Pre-Filled Syringe 1 EACH SC SCH (09:23)
--- NOTE | 2019-10-06 16:00 | PRG ---
DATE OF SERVICE: 10/06/2019 SUBJECTIVE: Mr. Frank has better appetite. He has less shortness of breath and less cough. No abdominal pain. No diarrhea. OBJECTIVE: VITAL SIGNS: Temperature has been normal, BP 107/58, pulse 78, he is breathing anywhere from 20 to 22 times a minute, and O2 sats have ranged from 94 to 97. His O2 supplementation is down from 4 to 2 L/minute. LUNGS: Symmetric air entry. HEART: S1 and S2. Regular rate. ABDOMEN: Soft, not distended. EXTREMITIES: Moves all extremities equally. LABORATORY DATA: White cell count is at 4.3, hemoglobin 12.4, and platelets 258. D-dimer 1.33, which is stable. Ferritin was down to 887, now is up to 1055, still lower than on admission. C-reactive protein is down to 3.55. Cardiology evaluation because of nonsustained ventricular tachycardia, which was felt to be due to being have the Coreg reduced to 25 b.i.d. when it should be on 50 b.i.d., associated with ischemic cardiomyopathy, so Entresto was planned to be started as well with titration upwards of the Entresto. ASSESSMENT AND DISCUSSION: 1. COVID pneumonia. 2. Coronary artery disease. 3. Nonsustained ventricular tachycardia. This is the 15th day of illness, and hopefully, we were not going to have any more surprises going forward and continue Decadron to finish course. Job ID: [id number]
[2019-10-06] MEDS: Atorvastatin Calcium 40 MG TAB PO SCH (21:01)
[2019-10-06] MEDS: Melatonin 3 MG TAB PO SCH (21:01)
[2019-10-06] MEDS: Gabapentin 300 MG CAP PO SCH (21:01)
[2019-10-07] MEDS: HumaLOG 300 UNITS/3 ML VIAL SC PRN ×4 (05:15→21:01)
[2019-10-07] MEDS: Carvedilol 25 MG TAB PO SCH ×2 (08:20→16:43)
[2019-10-07] MEDS: metFORMIN 500 MG TAB PO SCH ×2 (08:20→20:42)
[2019-10-07] MEDS: Ezetimibe 10 MG TAB PO SCH (08:20)
[2019-10-07] MEDS: Dexamethasone 4 MG TAB PO SCH (08:20)
[2019-10-07] MEDS: Aspirin 81 mg Enteric Coated Tablet PO SCH (08:20)
[2019-10-07] MEDS: Enoxaparin Sodium 80 MG/0.8 ML SYRINGE SC SCH ×2 (08:20→20:43)
[2019-10-07] MEDS: Allopurinol 100 MG TAB PO SCH (08:20)
[2019-10-07] MEDS: Furosemide 40 MG TAB PO SCH (08:21)
[2019-10-07] MEDS: Clopidogrel Bisulfate 75 MG TAB PO SCH (08:21)
[2019-10-07] MEDS: hydrALAZINE 25 MG TAB PO SCH ×3 (08:21→20:42)
[2019-10-07] MEDS: Insulin Glargine 10 UNITS in Pre-Filled Syringe 1 EACH SC SCH (08:21)
[2019-10-07] MEDS: NIFEdipine XL 90 MG TAB PO SCH (08:21)
[2019-10-07] MEDS ORDERED: Dexamethasone 4 mg/ml Vial SLOW IVP SCH (09:00)
--- NOTE | 2019-10-07 11:20 | PDOC.HOSPP ---
- Subjective Encounter Date: 10/07/19 Encounter Time: 11:19 Subjective: inimal cough, mild O2 dependency - Objective Vital Signs & Weight: Vital Signs (12 hours) Temp Pulse Resp BP BP BP Pulse Ox 10/07/19 08:15 98.2 F 71 22 H 150/74 H 95 10/07/19 08:00 87 L 10/07/19 05:30 70 20 175/73 H 96 10/07/19 00:00 98.4 F 78 20 174/72 H 97 Weight Weight 309 lb 4.8 oz I&O: 10/06/19 10/07/19 10/08/19 06:59 06:59 06:59 Intake Total 1770 1630 Output Total 2450 1600 Balance -680 30 Result Diagrams: 10/04/19 05:00 10/05/19 00:30 Additional Labs: Accuchecks 10/06/19 10/06/19 17:01 11:30 POC Glucose 294 H 301 H Hospitalist ROS - Medication Medications: Active Medications Generic Name Dose Route Start Last Admin Trade Name Freq PRN Reason Stop Dose Admin Acetaminophen 650 mg 09/30/19 16:57 10/02/19 21:49 Tylenol PO 650 mg Q6H PRN Administration Headache/Fever/Mild Pain (1-3) Allopurinol 200 mg 10/05/19 09:00 10/07/19 08:20 Zyloprim PO 200 mg DAILY DREA Administration Aspirin 81 mg 10/01/19 09:00 10/07/19 08:20 Ecotrin PO 81 mg DAILY DREA Administration Atorvastatin Calcium 40 mg 09/30/19 21:00 10/06/19 21:01 Lipitor PO 40 mg HS DREA Administration Carvedilol 50 mg 10/06/19 08:00 10/07/19 08:20 Coreg PO 50 mg BID-WM DREA Administration Clopidogrel Bisulfate 75 mg 10/01/19 09:00 10/07/19 08:21 Plavix PO 75 mg DAILY DREA Administration Dexamethasone 6 mg 10/07/19 08:00 10/07/19 08:20 Decadron PO 6 mg QAM-WM DREA Administration Ezetimibe 10 mg 10/01/19 09:00 10/07/19 08:20 Zetia PO 10 mg DAILY DREA Administration Enoxaparin Sodium 80 mg 10/02/19 21:00 10/07/19 08:20 Lovenox SC 80 mg 0900,2100 DREA Administration Furosemide 40 mg 10/05/19 09:00 10/07/19 08:21 Lasix PO 40 mg DAILY DREA Administration Gabapentin 300 mg 10/05/19 21:00 10/06/19 21:01 Neurontin PO 300 mg HS DREA Administration Glipizide 5 mg 10/05/19 08:00 10/07/19 08:21 Glucotrol Xl PO 5 mg QAM-WM DREA Administration Hydralazine HCl 10 mg 10/04/19 07:37 10/04/19 20:38 Apresoline SLOW IVP 10 mg Q4H PRN Administration SBP Greater Than 180 Hydralazine HCl 50 mg 10/05/19 09:00 10/07/19 08:21 Apresoline PO 50 mg TID DREA Administration Insulin Glargine 10 units/ 0.1 mls @ 0 mls/hr 10/06/19 09:00 10/07/19 08:21 Miscellaneous Medication SC 0.1 mls QAM DREA Administration Insulin Human Lispro 0 units 09/30/19 16:57 10/07/19 05:15 Humalog SC 3 unit .MILD SLIDING SCALE PRN Administration Mild Correctional Scale Insulin Human Lispro 0 units 09/30/19 16:57 10/06/19 21:15 Humalog SC 4 unit .BEDTIME SLIDING SC PRN Administration Bedtime Correctional Scale Melatonin 3 mg 10/05/19 21:00 10/06/19 21:01 Melatonin PO 3 mg HS DREA Administration Metformin HCl 375 mg 10/05/19 09:00 10/07/19 08:20 Glucophage PO 375 mg BID DREA Administration Nifedipine 90 mg 10/05/19 09:00 10/07/19 08:21 Procardia Xl PO 90 mg DAILY DREA Administration Ondansetron HCl 4 mg 10/01/19 01:44 10/02/19 08:57 Zofran Odt PO 4 mg Q6H PRN Administration Nausea/Vomiting Pantoprazole Sodium 40 mg 10/03/19 09:00 10/07/19 08:21 Protonix PO 40 mg DAILY DREA Administration Sacubitril/Valsartan 1 tab 10/07/19 09:00 10/07/19 08:24 Entresto 24 Mg-26 Mg Tablet PO 1 tab BID DREA Administration Sodium Chloride 10 ml 10/05/19 21:00 10/07/19 08:25 Flush - Normal Saline IVF 10 ml Q12HR DREA Administration - Exam General Appearance: awake alert Neck: no JVD Heart: RRR, no murmur Respiratory - other findings: decreased BS, non-focal Gastrointestinal: soft, non-tender, non-distended, normal bowel sounds Extremities: no edema Hosp A/P (1) Cardiomyopathy Code(s): I42.9 - CARDIOMYOPATHY, UNSPECIFIED Status: Acute (2) NSVT (nonsustained ventricular tachycardia) Code(s): I47.2 - VENTRICULAR TACHYCARDIA Status: Acute (3) Acute respiratory failure with hypoxia Code(s): J96.01 - ACUTE RESPIRATORY FAILURE WITH HYPOXIA Status: Acute (4) Pneumonia due to COVID-19 virus Code(s): U07.1 - COVID-19; J12.89 - OTHER VIRAL PNEUMONIA Status: Acute (5) CAD (coronary artery disease) Code(s): I25.10 - ATHSCL HEART DISEASE OF [place] CORONARY ARTERY W/O ANG PCTRS Status: Chronic Qualifiers: Coronary Disease-Associated Artery/Lesion type: [place] artery [place] vs. transplanted heart: [place] heart Associated angina: without angina Qualified Code(s): I25.10 - Atherosclerotic heart disease of [place] coronary artery without angina pectoris (6) Diabetes mellitus Code(s): E11.9 - TYPE 2 DIABETES MELLITUS WITHOUT COMPLICATIONS Status: Chronic Qualifiers: Diabetes mellitus type: type 2 (7) Dyslipidemia Code(s): E78.5 - HYPERLIPIDEMIA, UNSPECIFIED Status: Chronic - Plan continued improvement cont B- adrianne cont decadron, etc cont supplemental O2 as neededd
[2019-10-07] MEDS: Melatonin 3 MG TAB PO SCH (20:41)
[2019-10-07] MEDS: Atorvastatin Calcium 40 MG TAB PO SCH (20:41)
[2019-10-07] MEDS: Gabapentin 300 MG CAP PO SCH (20:42)
[2019-10-08] MEDS: HumaLOG 300 UNITS/3 ML VIAL SC PRN ×4 (05:40→20:19)
[2019-10-08] MEDS: Dexamethasone 4 MG TAB PO SCH (07:55)
[2019-10-08] MEDS: Carvedilol 25 MG TAB PO SCH ×2 (07:55→16:22)
[2019-10-08] MEDS: metFORMIN 500 MG TAB PO SCH ×2 (07:56→16:22)
[2019-10-08] MEDS: Allopurinol 100 MG TAB PO SCH (07:56)
[2019-10-08] MEDS: Clopidogrel Bisulfate 75 MG TAB PO SCH (07:57)
[2019-10-08] MEDS: Enoxaparin Sodium 80 MG/0.8 ML SYRINGE SC SCH ×2 (07:57→20:01)
[2019-10-08] MEDS: hydrALAZINE 25 MG TAB PO SCH ×3 (07:57→20:01)
[2019-10-08] MEDS: Furosemide 40 MG TAB PO SCH (07:57)
[2019-10-08] MEDS: Ezetimibe 10 MG TAB PO SCH (07:57)
[2019-10-08] MEDS: Aspirin 81 mg Enteric Coated Tablet PO SCH (07:57)
[2019-10-08] MEDS: NIFEdipine XL 90 MG TAB PO SCH (07:58)
[2019-10-08] MEDS: Insulin Glargine 10 UNITS in Pre-Filled Syringe 1 EACH SC SCH (09:15)
--- NOTE | 2019-10-08 10:46 | PDOC.HOSPP ---
- Subjective Encounter Date: 10/08/19 Encounter Time: 10:45 Subjective: minimal cough, sob - Objective Vital Signs & Weight: Vital Signs (12 hours) Temp Pulse Resp BP BP Pulse Ox 10/08/19 08:16 97.8 F 71 20 158/72 H 98 10/08/19 08:06 97 10/08/19 04:00 97.9 F 64 18 139/63 97 Weight Weight 309 lb 4.8 oz I&O: 10/07/19 10/08/19 10/09/19 06:59 06:59 06:59 Intake Total 1630 1460 Output Total 1600 1960 400 Balance 30 -500 -400 Result Diagrams: 10/04/19 05:00 10/05/19 00:30 Additional Labs: Accuchecks 10/08/19 10/07/19 10/07/19 05:35 21:01 11:19 POC Glucose 234 H 447 H 280 H 10/07/19 05:25 POC Glucose 202 H Hospitalist ROS - Medication Medications: Active Medications Generic Name Dose Route Start Last Admin Trade Name Freq PRN Reason Stop Dose Admin Acetaminophen 650 mg 09/30/19 16:57 10/02/19 21:49 Tylenol PO 650 mg Q6H PRN Administration Headache/Fever/Mild Pain (1-3) Allopurinol 200 mg 10/05/19 09:00 10/08/19 07:56 Zyloprim PO 200 mg DAILY DREA Administration Aspirin 81 mg 10/01/19 09:00 10/08/19 07:57 Ecotrin PO 81 mg DAILY DREA Administration Atorvastatin Calcium 40 mg 09/30/19 21:00 10/07/19 20:41 Lipitor PO 40 mg HS DREA Administration Carvedilol 50 mg 10/06/19 08:00 10/08/19 07:55 Coreg PO 50 mg BID-WM DREA Administration Clopidogrel Bisulfate 75 mg 10/01/19 09:00 10/08/19 07:57 Plavix PO 75 mg DAILY DREA Administration Dexamethasone 6 mg 10/07/19 08:00 10/08/19 07:55 Decadron PO 6 mg QAM-WM DREA Administration Ezetimibe 10 mg 10/01/19 09:00 10/08/19 07:57 Zetia PO 10 mg DAILY DREA Administration Enoxaparin Sodium 80 mg 10/02/19 21:00 10/08/19 07:57 Lovenox SC 80 mg 0900,2100 DREA Administration Furosemide 40 mg 10/05/19 09:00 10/08/19 07:57 Lasix PO 40 mg DAILY DREA Administration Gabapentin 300 mg 10/05/19 21:00 10/07/19 20:42 Neurontin PO 300 mg HS DREA Administration Glipizide 5 mg 10/05/19 08:00 10/08/19 07:55 Glucotrol Xl PO 5 mg QAM-WM DREA Administration Hydralazine HCl 10 mg 10/04/19 07:37 10/04/19 20:38 Apresoline SLOW IVP 10 mg Q4H PRN Administration SBP Greater Than 180 Hydralazine HCl 50 mg 10/05/19 09:00 10/08/19 07:57 Apresoline PO 50 mg TID DREA Administration Insulin Glargine 10 units/ 0.1 mls @ 0 mls/hr 10/06/19 09:00 10/08/19 09:15 Miscellaneous Medication SC 0.1 mls QAM DREA Administration Insulin Human Lispro 0 units 09/30/19 16:57 10/08/19 05:40 Humalog SC 3 unit .MILD SLIDING SCALE PRN Administration Mild Correctional Scale Insulin Human Lispro 0 units 09/30/19 16:57 10/07/19 21:01 Humalog SC 5 unit .BEDTIME SLIDING SC PRN Administration Bedtime Correctional Scale Melatonin 3 mg 10/05/19 21:00 10/07/19 20:41 Melatonin PO 3 mg HS DREA Administration Metformin HCl 375 mg 10/08/19 08:00 10/08/19 07:56 Glucophage PO 375 mg BID-WM DREA Administration Nifedipine 90 mg 10/05/19 09:00 10/08/19 07:58 Procardia Xl PO 90 mg DAILY DREA Administration Ondansetron HCl 4 mg 10/01/19 01:44 10/02/19 08:57 Zofran Odt PO 4 mg Q6H PRN Administration Nausea/Vomiting Pantoprazole Sodium 40 mg 10/03/19 09:00 10/08/19 07:58 Protonix PO 40 mg DAILY DREA Administration Sacubitril/Valsartan 1 tab 10/07/19 09:00 10/08/19 07:58 Entresto 24 Mg-26 Mg Tablet PO 1 tab BID DREA Administration Sodium Chloride 10 ml 10/05/19 21:00 10/08/19 07:58 Flush - Normal Saline IVF 10 ml Q12HR DREA Administration - Exam General Appearance: awake alert Neck: no JVD Heart: RRR, no murmur Respiratory: CTAB Gastrointestinal: soft, normal bowel sounds Extremities: no edema Hosp A/P (1) Cardiomyopathy Code(s): I42.9 - CARDIOMYOPATHY, UNSPECIFIED Status: Acute (2) NSVT (nonsustained ventricular tachycardia) Code(s): I47.2 - VENTRICULAR TACHYCARDIA Status: Acute (3) Acute respiratory failure with hypoxia Code(s): J96.01 - ACUTE RESPIRATORY FAILURE WITH HYPOXIA Status: Acute (4) Pneumonia due to COVID-19 virus Code(s): U07.1 - COVID-19; J12.89 - OTHER VIRAL PNEUMONIA Status: Acute (5) CAD (coronary artery disease) Code(s): I25.10 - ATHSCL HEART DISEASE OF [place] CORONARY ARTERY W/O ANG PCTRS Status: Chronic Qualifiers: Coronary Disease-Associated Artery/Lesion type: [place] artery [place] vs. transplanted heart: [place] heart Associated angina: without angina Qualified Code(s): I25.10 - Atherosclerotic heart disease of [place] coronary artery without angina pectoris (6) Diabetes mellitus Code(s): E11.9 - TYPE 2 DIABETES MELLITUS WITHOUT COMPLICATIONS Status: Chronic Qualifiers: Diabetes mellitus type: type 2 (7) Dyslipidemia Code(s): E78.5 - HYPERLIPIDEMIA, UNSPECIFIED Status: Chronic - Plan continued improvement cont B- adrianne cont decadron, etc cont supplemental O2 as neededd discusss discharge with ID
[2019-10-08] MEDS: Melatonin 3 MG TAB PO SCH (20:01)
[2019-10-08] MEDS: Gabapentin 300 MG CAP PO SCH (20:01)
[2019-10-08] MEDS: Atorvastatin Calcium 40 MG TAB PO SCH (20:01)
[2019-10-09] MEDS: HumaLOG 300 UNITS/3 ML VIAL SC PRN ×4 (06:14→20:47)
[2019-10-09] MEDS: metFORMIN 500 MG TAB PO SCH ×2 (09:57→17:13)
[2019-10-09] MEDS: Carvedilol 25 MG TAB PO SCH ×2 (09:57→17:13)
[2019-10-09] MEDS: Aspirin 81 mg Enteric Coated Tablet PO SCH (09:57)
[2019-10-09] MEDS: Dexamethasone 4 MG TAB PO SCH (09:57)
[2019-10-09] MEDS: Enoxaparin Sodium 80 MG/0.8 ML SYRINGE SC SCH ×2 (09:57→19:57)
[2019-10-09] MEDS: Allopurinol 100 MG TAB PO SCH (09:57)
[2019-10-09] MEDS: Clopidogrel Bisulfate 75 MG TAB PO SCH (09:57)
[2019-10-09] MEDS: hydrALAZINE 25 MG TAB PO SCH ×3 (09:58→19:56)
[2019-10-09] MEDS: Insulin Glargine 10 UNITS in Pre-Filled Syringe 1 EACH SC SCH (09:58)
[2019-10-09] MEDS: Furosemide 40 MG TAB PO SCH (09:58)
[2019-10-09] MEDS: NIFEdipine XL 90 MG TAB PO SCH (09:58)
[2019-10-09] MEDS: Ezetimibe 10 MG TAB PO SCH (09:58)
--- NOTE | 2019-10-09 14:20 | PRG ---
DATE OF SERVICE: 10/09/2019 SUBJECTIVE: Feeling good. Able to walk around with little desaturation. Other vital signs are normal. Little cough if any. No abdominal pain or diarrhea. Eating well. OBJECTIVE: LUNGS: Clear. HEART: S1-S2, regular rate. ABDOMEN: Soft, not distended. NEUROLOGICAL: Moves extremities equally. LABORATORY DATA: We have the D-dimer down to 0.86. The ferritin is down to 870 and CRP is less than 0.5. He is currently on Decadron which was started on 10/16, I think actually it is longer than that, he has been here since the , so today is the 8th or 9th day. He has 1 or 2 more doses and then he is done with his Decadron treatment. ASSESSMENT AND DISCUSSION: COVID pneumonia, coronary artery disease. This is the day of the illness, so one more day of Decadron and he is done and I think he should be discharged with oxygen just in case for a few days, so he does not show up back in the emergency room. Job ID: [id number]
--- NOTE | 2019-10-09 16:24 | PDOC.HOSPP ---
- Subjective Encounter Date: 10/09/19 Encounter Time: 16:22 Subjective: off O2 with good sats - Objective Vital Signs & Weight: Vital Signs (12 hours) Temp Pulse Resp BP Pulse Ox 10/09/19 15:22 98.2 F 65 20 137/64 96 10/09/19 15:06 63 10/09/19 12:00 97.9 F 64 22 H 108/53 L 93 L 10/09/19 09:58 63 10/09/19 09:00 98.2 F 66 20 177/77 H 98 Weight Weight 301 lb 3.2 oz I&O: 10/08/19 10/09/19 10/10/19 06:59 06:59 06:59 Intake Total 1460 2240 240 Output Total 1960 2600 600 Balance -500 -360 -360 Result Diagrams: 10/04/19 05:00 10/05/19 00:30 Additional Labs: Accuchecks 10/09/19 10/09/19 10/08/19 12:20 06:16 20:10 POC Glucose 410 H 213 H 427 H 10/08/19 16:34 POC Glucose 429 H Hospitalist ROS - Medication Medications: Active Medications Generic Name Dose Route Start Last Admin Trade Name Freq PRN Reason Stop Dose Admin Acetaminophen 650 mg 09/30/19 16:57 10/02/19 21:49 Tylenol PO 650 mg Q6H PRN Administration Headache/Fever/Mild Pain (1-3) Allopurinol 200 mg 10/05/19 09:00 10/09/19 09:57 Zyloprim PO 200 mg DAILY DREA Administration Aspirin 81 mg 10/01/19 09:00 10/09/19 09:57 Ecotrin PO 81 mg DAILY DREA Administration Atorvastatin Calcium 40 mg 09/30/19 21:00 10/08/19 20:01 Lipitor PO 40 mg HS DREA Administration Carvedilol 50 mg 10/06/19 08:00 10/09/19 09:57 Coreg PO 50 mg BID-WM DREA Administration Clopidogrel Bisulfate 75 mg 10/01/19 09:00 10/09/19 09:57 Plavix PO 75 mg DAILY DREA Administration Dexamethasone 6 mg 10/07/19 08:00 10/09/19 09:57 Decadron PO 6 mg QAM-WM DREA Administration Ezetimibe 10 mg 10/01/19 09:00 10/09/19 09:58 Zetia PO 10 mg DAILY DREA Administration Enoxaparin Sodium 80 mg 10/02/19 21:00 10/09/19 09:57 Lovenox SC 80 mg 09,2099 DREA Administration Furosemide 40 mg 10/05/19 09:00 10/09/19 09:58 Lasix PO 40 mg DAILY DREA Administration Gabapentin 300 mg 10/05/19 21:00 10/08/19 20:01 Neurontin PO 300 mg HS DREA Administration Glipizide 5 mg 10/05/19 08:00 10/09/19 09:57 Glucotrol Xl PO 5 mg QAM-WM DREA Administration Hydralazine HCl 10 mg 10/04/19 07:37 10/04/19 20:38 Apresoline SLOW IVP 10 mg Q4H PRN Administration SBP Greater Than 180 Hydralazine HCl 50 mg 10/05/19 09:00 10/09/19 15:06 Apresoline PO 50 mg TID DREA Administration Insulin Glargine 10 units/ 0.1 mls @ 0 mls/hr 10/06/19 09:00 10/09/19 09:58 Miscellaneous Medication SC 0.1 mls QAM DREA Administration Insulin Human Lispro 0 units 09/30/19 16:57 10/09/19 12:12 Humalog SC 6 unit .MILD SLIDING SCALE PRN Administration Mild Correctional Scale Insulin Human Lispro 0 units 09/30/19 16:57 10/08/19 20:19 Humalog SC 5 unit .BEDTIME SLIDING SC PRN Administration Bedtime Correctional Scale Melatonin 3 mg 10/05/19 21:00 10/08/19 20:01 Melatonin PO 3 mg HS DREA Administration Metformin HCl 375 mg 10/08/19 08:00 10/09/19 09:57 Glucophage PO 375 mg BID-WM DREA Administration Nifedipine 90 mg 10/05/19 09:00 10/09/19 09:58 Procardia Xl PO 90 mg DAILY DREA Administration Ondansetron HCl 4 mg 10/01/19 01:44 10/02/19 08:57 Zofran Odt PO 4 mg Q6H PRN Administration Nausea/Vomiting Pantoprazole Sodium 40 mg 10/03/19 09:00 10/09/19 09:58 Protonix PO 40 mg DAILY DREA Administration Sodium Chloride 10 ml 10/05/19 21:00 10/09/19 09:58 Flush - Normal Saline IVF 10 ml Q12HR DREA Administration - Exam General Appearance: awake alert Neck: no JVD Heart: RRR Respiratory: CTAB Gastrointestinal: soft, normal bowel sounds Extremities: 1+ LE edema Hosp A/P (1) Cardiomyopathy Code(s): I42.9 - CARDIOMYOPATHY, UNSPECIFIED Status: Acute Qualifiers: Cardiomyopathy type: unspecified Qualified Code(s): I42.9 - Cardiomyopathy , unspecified (2) NSVT (nonsustained ventricular tachycardia) Code(s): I47.2 - VENTRICULAR TACHYCARDIA Status: Acute (3) Acute respiratory failure with hypoxia Code(s): J96.01 - ACUTE RESPIRATORY FAILURE WITH HYPOXIA Status: Acute (4) Pneumonia due to COVID-19 virus Code(s): U07.1 - COVID-19; J12.89 - OTHER VIRAL PNEUMONIA Status: Acute (5) CAD (coronary artery disease) Code(s): I25.10 - ATHSCL HEART DISEASE OF [place] CORONARY ARTERY W/O ANG PCTRS Status: Chronic Qualifiers: Coronary Disease-Associated Artery/Lesion type: [place] artery [place] vs. transplanted heart: [place] heart Associated angina: without angina Qualified Code(s): I25.10 - Atherosclerotic heart disease of [place] coronary artery without angina pectoris (6) Diabetes mellitus Code(s): E11.9 - TYPE 2 DIABETES MELLITUS WITHOUT COMPLICATIONS Status: Chronic Qualifiers: Diabetes mellitus type: type 2 Diabetes mellitus longterm insulin use: without adjunct faculty for medical terminology use Diabetes mellitus complication status: without complication Qualified Code(s): E11.9 - Type 2 diabetes mellitus without complications (7) Dyslipidemia Code(s): E78.5 - HYPERLIPIDEMIA, UNSPECIFIED Status: Chronic - Plan entresto incresed today by sardiology, home in AM if BP stable
[2019-10-09] MEDS: Atorvastatin Calcium 40 MG TAB PO SCH (19:57)
[2019-10-09] MEDS: Gabapentin 300 MG CAP PO SCH (19:57)
[2019-10-09] MEDS: Melatonin 3 MG TAB PO SCH (19:57)
[2019-10-10] MEDS: HumaLOG 300 UNITS/3 ML VIAL SC PRN (04:42)
[2019-10-10 08:29] VITALS: BP 160/70; TEMP 98.7
[2019-10-10] MEDS: Aspirin 81 mg Enteric Coated Tablet PO SCH (09:11)
[2019-10-10] MEDS: Furosemide 40 MG TAB PO SCH (09:11)
[2019-10-10] MEDS: Allopurinol 100 MG TAB PO SCH (09:11)
[2019-10-10] MEDS: Dexamethasone 4 MG TAB PO SCH (09:12)
[2019-10-10] MEDS: NIFEdipine XL 90 MG TAB PO SCH (09:12)
[2019-10-10] MEDS: Ezetimibe 10 MG TAB PO SCH (09:12)
[2019-10-10] MEDS: Clopidogrel Bisulfate 75 MG TAB PO SCH (09:13)
[2019-10-10] MEDS: hydrALAZINE 25 MG TAB PO SCH (09:13)
[2019-10-10] MEDS: Carvedilol 25 MG TAB PO SCH (09:13)
[2019-10-10] MEDS: Insulin Glargine 10 UNITS in Pre-Filled Syringe 1 EACH SC SCH (09:14)
[2019-10-10] MEDS: Enoxaparin Sodium 80 MG/0.8 ML SYRINGE SC SCH (09:14)
[2019-10-10] MEDS ORDERED: metFORMIN 500 MG TAB PO SCH ×2 (09:15→17:00)
[2019-10-10] MEDS: metFORMIN 500 MG TAB PO SCH (09:17)
--- NOTE | 2019-10-10 14:44 | DIS ---
DATE OF ADMISSION: 09/30/2019 DATE OF DISCHARGE: 10/10/2019 DISPOSITION: Discharged home. PRIMARY CARE PROVIDER: Real Hylton MD FINAL DIAGNOSES: COVID pneumonia, acute respiratory failure with hypoxia, coronary artery disease, diabetes mellitus type 2, dyslipidemia, cardiomyopathy, hypertension. HOSPITAL COURSE: He had symptoms consistent with COVID. Chest x-ray, patchy alveolar infiltrates, ground-glass typical of viral pneumonia. Troponin 0.059. Liver function test unremarkable. Sodium 140, potassium 4.0, chloride 102, CO2 of 23, BUN 21. CBC; white count 3.4, hemoglobin 14.6, platelet count 147,000 with neutropenia. He was placed in the hospital. Cultures, antibiotics started. He was seen in consultation by Dr. Henry Gomez, who recommended inflammatory markers. Markers were high on admission and trended down during hospital stay. Discontinued antibiotics. He was not eligible for Remdesivir. He had nonsustained ventricular tachycardia, was seen by Dr. Nathanael Chahal, Cardiology. He has a history of cardiac cath with ejection fraction of 15%. He had recently been put on only half of his usual dose of Coreg, it was increased to 50. Lisinopril his usual home medicine was discontinued and we started on low-dose Entresto on 2019. Remained short of breath on O2. Mildly elevated troponins. Dexamethasone was instituted. He was given half dose of therapeutic Lovenox on 10/03. Mild dyspnea on exertion, ambulating to the bathroom. He was still requiring O2 up to 4 L. vital signs revealed a slightly low pulse with some blood pressure that was high. He was started on amlodipine. He has slowly come off the oxygen. He is currently stable and off O2. Physical examination is unremarkable except for a few rhonchi. His blood pressure is stable. He is being discharged for followup with his PCP, Real Hylton. He has been hospitalized 10 days. He has had a full 10 day course of Decadron. He is on no specific antiviral medicine otherwise. He has been told to isolate for 2 weeks when he goes home. To see Dr. Hylton in 3 to 7 days for followup. Job ID: [id number] MTDD
== END 2019-10-10 10:12 | disposition home or self-care (01) | DRG 177 ==
LOC: ERS 14:10 → 2SW 15:41 → OBSVTOIN 15:41
PROVIDERS: ADMIT Family Medicine; ATTEND Family Medicine
PROC: 8E0ZXY6 Isolation (ICD-10-PCS; principal; 2019-09-30)
PROC: 30233L1 Transfusion of Nonautologous Fresh Plasma into Peripheral Vein, Percutaneous Approach (ICD-10-PCS; 2019-10-03)
PROC: 30233K1 Transfusion of Nonautologous Frozen Plasma into Peripheral Vein, Percutaneous Approach (ICD-10-PCS; 2019-10-03)
DX: U07.1 COVID-19 (principal); J12.89 Other viral pneumonia; J96.01 Acute respiratory failure with hypoxia; I47.2 Ventricular tachycardia; I50.22 Chronic systolic (congestive) heart failure; Z68.41 Body mass index [BMI] 40.0-44.9, adult; I25.10 Atherosclerotic heart disease of native coronary artery without angina pectoris; E78.5 Hyperlipidemia, unspecified; M10.9 Gout, unspecified; I25.2 Old myocardial infarction; Z95.1 Presence of aortocoronary bypass graft; Z90.49 Acquired absence of other specified parts of digestive tract; Z79.899 Other long term (current) drug therapy; Z79.84 Long term (current) use of oral hypoglycemic drugs; E11.65 Type 2 diabetes mellitus with hyperglycemia; I11.0 Hypertensive heart disease with heart failure; D72.819 Decreased white blood cell count, unspecified; I25.5 Ischemic cardiomyopathy; E78.00 Pure hypercholesterolemia, unspecified; E66.9 Obesity, unspecified
CPT/HCPCS: 36415; 36416; 36430; 71045; 71275; 80048; 80053; 81001; 82553; 82728; 83605; 83735; 83880; 84100; 84484; 85025; 85379; 86140; 86850; 86900; 86901; 93005; 94760; 96361; 96365; 96372; G0378; J0360; J0696; J1100; J1650; J1815; J3490; J8540; Q0162; Q9967; U0002

== ENCOUNTER 2020-08-07 19:33 | Inpatient (IN) | payer OTHER ==
[2020-08-07 20:17] LABS: #Eosinphils 0.1 thou/uL (0.0-0.7); #Lymphocytes 0.7 thou/uL (1.20-3.40); #Monocytes 0.5 thou/uL (0.11-0.59); #Neutrophils 8.1 thou/uL (1.40-6.50); %Basophils 0.2 % (0.0-1.0); %Eosinophils 0.7 % (0.0-10.0); %Monocytes 5.8 % (0.0-10.0); %Neutrophils 86.3 % (42.0-75.0); Mean Corpuscular HGB CONC 33.6 g/dL (32.0-36.0); Mean Corpuscular Hemoglobin 30.5 pg (27.0-31.0); Mean Corpuscular Volume 90.9 fL (78.0-98.0); Mean Platelet Volume 7.2 fL (7.4-10.4); Platelet Count 227 thou/uL (130-400); Red Blood Cell (RBC) Count 5.57 mill/uL (4.70-6.10); White Blood Cell (WBC) Count 9.3 thou/uL (4.8-10.8)
[2020-08-07 20:30] LABS: ALT (SGPT) 26 U/L (8-55); AST (SGOT) 24 U/L (5-34); Albumin 4.1 g/dL (3.5-5.0); Alkaline Phosphatase 109 U/L (40-110); Anion Gap 15 mmol/L (10-20); BUN (Urea Nitrogen) 16 mg/dL (8.4-25.7); Bilirubin, Total 0.8 mg/dL (0.2-1.2); Calc. Creatinine Clearance 0 mL/min (70-130); Calcium 8.9 mg/dL (7.8-10.44); Carbon Dioxide 21 mmol/L (22-29); Chloride 105 mmol/L (98-107); Globulin 3.4 g/dL (2.4-3.5); Glucose 125 mg/dL (70-105); Lipase 47 U/L (8-78); Potassium 4.1 mmol/L (3.5-5.1); Protein, Total 7.5 g/dL (6.0-8.3); Sodium 137 mmol/L (136-145)
[2020-08-07] MEDS ORDERED: Piperacillin/Tazobactam 4.5 GM VIAL ONE (20:36)
[2020-08-07] MEDS ORDERED: Acetaminophen 500 MG TAB ONE (20:36)
[2020-08-07] MEDS ORDERED: Vancomycin 1 GM/200 ML BAG ONE (21:37)
[2020-08-07] MEDS ORDERED: Zolpidem Tartrate 5 MG TAB PO PRN (22:10)
[2020-08-07] MEDS ORDERED: Acetaminophen 325 MG TAB PO PRN (22:10)
[2020-08-07] MEDS ORDERED: Bisacodyl 10 MG SUPP PR PRN (22:10)
[2020-08-07] MEDS ORDERED: Ondansetron PF 4 MG/2 ML Vial IVP PRN (22:10)
[2020-08-07] MEDS ORDERED: HYDROcodone/Acetaminophen 5/325 mg Tablet PO PRN (22:10)
[2020-08-07] MEDS ORDERED: HumaLOG 300 UNITS/3 ML VIAL SC PRN (22:13)
[2020-08-07] MEDS ORDERED: Morphine 2 MG/ML VIAL SLOW IVP PRN (22:13)
[2020-08-07] MEDS ORDERED: hydrALAZINE 20 MG/ML VIAL SLOW IVP PRN (22:13)
[2020-08-07 22:28] LABS: SARS-CoV-2 NAA Rapid Test Not Detected (NotDetected)
[2020-08-07] MEDS ORDERED: Sodium Chloride 0.9% 1,000 ML IV SCH (22:30)
[2020-08-08] MEDS: Cefepime 1 GM in Sodium Chloride 0.9% 100 ML IVPB SCH ×2 (02:31→11:42)
[2020-08-08 05:08] VITALS: BMI 48.9
[2020-08-08 05:14] LABS: #Lymphocytes 0.9 thou/uL (1.20-3.40); #Monocytes 0.5 thou/uL (0.11-0.59); #Neutrophils 7.5 thou/uL (1.40-6.50); %Basophils 0.2 % (0.0-1.0); %Eosinophils 0.3 % (0.0-10.0); %Lymphocytes 10.3 % (21.0-51.0); %Monocytes 5.9 % (0.0-10.0); %Neutrophils 83.4 % (42.0-75.0); Hemoglobin 15.8 g/dL (14.0-18.0); Mean Corpuscular Hemoglobin 30.5 pg (27.0-31.0); Mean Corpuscular Volume 92.3 fL (78.0-98.0); Mean Platelet Volume 7.3 fL (7.4-10.4); Platelet Count 197 thou/uL (130-400); RBC Distribution Width 12.9 % (11.5-14.5); Red Blood Cell (RBC) Count 5.17 mill/uL (4.70-6.10)
[2020-08-08 05:41] LABS: Anion Gap 12 mmol/L (10-20); BUN (Urea Nitrogen) 17 mg/dL (8.4-25.7); Calc. Creatinine Clearance 144 mL/min (70-130); Calcium 9.1 mg/dL (7.8-10.44); Carbon Dioxide 26 mmol/L (22-29); Chloride 104 mmol/L (98-107); Glucose 143 mg/dL (70-105); Potassium 3.7 mmol/L (3.5-5.1); Sodium 138 mmol/L (136-145)
[2020-08-08] MEDS ORDERED: Nitroglycerin 0.4 MG TAB (25 Tab Bottle) SL PRN (07:09)
[2020-08-08] MEDS: Enoxaparin Sodium 40 MG/0.4 ML SYRINGE SC SCH (07:51)
[2020-08-08] MEDS: Allopurinol 100 MG TAB PO SCH (07:53)
[2020-08-08] MEDS: Atorvastatin Calcium 40 MG TAB PO SCH ×2 (07:53→21:26)
[2020-08-08] MEDS: Aspirin 81 mg Enteric Coated Tablet PO SCH (07:53)
[2020-08-08] MEDS: Sacubitril 49 MG/Valsartan 51 MG TABLET PO SCH ×2 (07:53→21:54)
[2020-08-08] MEDS: Ezetimibe 10 MG TAB PO SCH (07:53)
[2020-08-08] MEDS: Carvedilol 25 MG TAB PO SCH ×2 (07:53→17:45)
[2020-08-08] MEDS: Clopidogrel Bisulfate 75 MG TAB PO SCH (07:54)
[2020-08-08 12:14] LABS: Bacteria/HPF None Seen HPF (None Seen); Bilirubin Negative (Negative); Blood, Urine 2+ (Negative); Clarity Clear (Clear); Glucose, Urine (Dipstick) Greater than 1000 mg/dL (Negative); Ketone, Urine Negative (Negative); Leukocyte Negative Leu/uL (Negative); Nitrite Negative (Negative); Protein, Urine (Dipstick) 200 mg/dL (Neg-Trace); RBC/HPF 0-3 HPF (0-3); Specific Gravity, Urine 1.038 (1.002-1.036); Squamous Epithelial 0-3 HPF (0-3); Urobilinogen Normal mg/dL (Less than 2); WBC/HPF 0-3 HPF (0-3); pH, Urine 5.5 (5.0-9.0)
[2020-08-08 12:20] LABS: Urine Culture Reflex No No
[2020-08-08] MEDS ORDERED: Famotidine 20 MG TAB PO SCH (21:00)
[2020-08-09] MEDS: Cefepime 1 GM in Sodium Chloride 0.9% 100 ML IVPB SCH ×2 (01:13→11:33)
[2020-08-09] MEDS: Allopurinol 100 MG TAB PO SCH (08:27)
[2020-08-09] MEDS: Clopidogrel Bisulfate 75 MG TAB PO SCH (08:28)
[2020-08-09] MEDS: Carvedilol 25 MG TAB PO SCH ×2 (08:28→17:26)
[2020-08-09] MEDS: Atorvastatin Calcium 40 MG TAB PO SCH (08:29)
[2020-08-09] MEDS: Ezetimibe 10 MG TAB PO SCH (08:29)
[2020-08-09] MEDS: Enoxaparin Sodium 40 MG/0.4 ML SYRINGE SC SCH (08:29)
[2020-08-09] MEDS: Aspirin 81 mg Enteric Coated Tablet PO SCH (08:29)
[2020-08-09] MEDS: Sacubitril 49 MG/Valsartan 51 MG TABLET PO SCH (09:59)
[2020-08-09 16:09] LABS: Anion Gap 11 mmol/L (10-20); BUN (Urea Nitrogen) 16 mg/dL (8.4-25.7); Calc. Creatinine Clearance 178 mL/min (70-130); Calcium 8.9 mg/dL (7.8-10.44); Carbon Dioxide 26 mmol/L (22-29); Chloride 107 mmol/L (98-107); Glucose 125 mg/dL (70-105); Potassium 3.7 mmol/L (3.5-5.1); Sodium 140 mmol/L (136-145)
[2020-08-09 18:01] VITALS: BP 159/70; TEMP 98.4
[2020-08-09] MEDS ORDERED: Saccharomyces boulardii 250 MG CAP PO SCH (21:00)
== END 2020-08-09 18:47 | disposition home or self-care (01) | DRG 872 ==
LOC: ERS 19:33 → 2SW 22:10 → OBSVTOIN 08-08 12:08
PROVIDERS: ADMIT Internal Medicine; ATTEND Internal Medicine
DX: A41.89 Other specified sepsis (principal); I42.9 Cardiomyopathy, unspecified; I25.810 Atherosclerosis of coronary artery bypass graft(s) without angina pectoris; I50.42 Chronic combined systolic (congestive) and diastolic (congestive) heart failure; I13.0 Hypertensive heart and chronic kidney disease with heart failure and stage 1 through stage 4 chronic kidney disease, or unspecified chronic kidney disease; Z68.42 Body mass index [BMI] 45.0-49.9, adult; E78.5 Hyperlipidemia, unspecified; M10.9 Gout, unspecified; E66.01 Morbid (severe) obesity due to excess calories; K52.9 Noninfective gastroenteritis and colitis, unspecified; E11.22 Type 2 diabetes mellitus with diabetic chronic kidney disease; E86.0 Dehydration; N18.2 Chronic kidney disease, stage 2 (mild); K80.20 Calculus of gallbladder without cholecystitis without obstruction; K76.0 Fatty (change of) liver, not elsewhere classified; K43.9 Ventral hernia without obstruction or gangrene; Z95.1 Presence of aortocoronary bypass graft; Z90.49 Acquired absence of other specified parts of digestive tract; Z82.49 Family history of ischemic heart disease and other diseases of the circulatory system; Z86.16 Personal history of COVID-19; Z79.82 Long term (current) use of aspirin; Z79.84 Long term (current) use of oral hypoglycemic drugs
CPT/HCPCS: 0240U; 36415; 36416; 71045; 71275; 74177; 80048; 80053; 81001; 83605; 83690; 83735; 83880; 84484; 85025; 87040; 87045; 87046; 87081; 87324; 87427; 87449; 93005; 93306; 96365; 96367; 96372; 96376; G0378; J0360; J0692; J1650; J2543; J3370; J3490

== ENCOUNTER 2020-12-25 19:30 | Outpatient (CLI) | payer OTHER | END 2020-12-25 19:31 | disposition home or self-care (01) | LOC: SLEEPLAB 19:30 | PROVIDERS: ATTEND Internal Medicine Pulmonary Disease | DX: G47.33 Obstructive sleep apnea (adult) (pediatric) (principal); R53.83 Other fatigue; K21.9 Gastro-esophageal reflux disease without esophagitis; I51.9 Heart disease, unspecified; R06.83 Snoring; I10 Essential (primary) hypertension; G47.10 Hypersomnia, unspecified; G47.00 Insomnia, unspecified; I25.10 Atherosclerotic heart disease of native coronary artery without angina pectoris; R00.0 Tachycardia, unspecified; E66.9 Obesity, unspecified; Z68.42 Body mass index [BMI] 45.0-49.9, adult | CPT/HCPCS: 95810 ==

== ENCOUNTER 2022-02-09 01:59 | Inpatient (IN) | payer BC ==
[2022-02-09 02:56] LABS: #Eosinphils 0.1 thou/uL (0.0-0.7); #Lymphocytes 0.6 thou/uL (1.20-3.40); #Monocytes 0.9 thou/uL (0.11-0.59); #Neutrophils 9.2 thou/uL (1.40-6.50); %Eosinophils 0.6 % (0.0-10.0); %Lymphocytes 5.8 % (21.0-51.0); %Monocytes 8.2 % (0.0-10.0); %Neutrophils 85.3 % (42.0-75.0); Hemoglobin 11.6 g/dL (14.0-18.0); Mean Corpuscular HGB CONC 31.6 g/dL (32.0-36.0); Mean Corpuscular Hemoglobin 27.6 pg (27.0-31.0); Mean Corpuscular Volume 87.4 fl (78.0-98.0); Mean Platelet Volume 7.2 fL (7.4-10.4); Platelet Count 338 10x3/uL (130-400); RBC Distribution Width 15.3 % (11.5-14.5); Red Blood Cell (RBC) Count 4.21 mill/uL (4.70-6.10); White Blood Cell (WBC) Count 10.8 10x3/uL (4.8-10.8)
[2022-02-09 03:18] LABS: ALT (SGPT) 15 U/L (8-55); AST (SGOT) 16 U/L (5-34); Albumin 3.2 g/dL (3.5-5.0); Alkaline Phosphatase 104 U/L (40-110); Anion Gap 15 mmol/L (10-20); BUN (Urea Nitrogen) 15 mg/dL (8.4-25.7); Bilirubin, Total 1.1 mg/dL (0.2-1.2); Calc. Creatinine Clearance 0 mL/min (70-130); Calcium 9.1 mg/dL (7.8-10.44); Carbon Dioxide 23 mmol/L (22-29); Chloride 100 mmol/L (98-107); Estimated GFR 97; Globulin 4.3 g/dL (2.4-3.5); Glucose 206 mg/dL (70-105); Protein, Total 7.5 g/dL (6.0-8.3); Sodium 134 mmol/L (136-145)
[2022-02-09] MEDS ORDERED: Ketorolac Tromethamine 30 MG/ML VIAL ONE (03:31)
[2022-02-09] MEDS ORDERED: Ondansetron PF 4 MG/2 ML Vial ONE (03:31)
[2022-02-09 04:57] LABS: Bacteria/HPF 1+ HPF (None Seen); Bilirubin 1+ (Negative); Blood, Urine Trace (Negative); Clarity Clear (Clear); Glucose, Urine (Dipstick) 30 mg/dL (Negative); Ketone, Urine Trace mg/dL (Negative); Leukocyte Negative Leu/uL (Negative); Nitrite Negative (Negative); Protein, Urine (Dipstick) 300 mg/dL (Neg-Trace); Specific Gravity, Urine 1.039 (1.002-1.036); Squamous Epithelial 0-3 HPF (0-3); WBC/HPF 0-3 HPF (0-3); pH, Urine 5.5 (5.0-9.0)
[2022-02-09 05:16] LABS: SARS-CoV-2 NAA Rapid Test Not Detected (NotDetected)
[2022-02-09] MEDS ORDERED: Piperacillin/Tazobactam 4.5 GM VIAL ONE (07:27)
[2022-02-09] MEDS ORDERED: Ondansetron PF 4 MG/2 ML Vial IVP PRN (07:50)
[2022-02-09] MEDS ORDERED: Acetaminophen 325 MG TAB PO PRN (07:50)
[2022-02-09] MEDS ORDERED: Dextrose 5% in Water 1,000 ML IV PRN (07:54)
[2022-02-09] MEDS ORDERED: Dextrose 50% Abboject 50 ML SYRINGE SLOW IVP PRN (07:54)
[2022-02-09] MEDS ORDERED: HumaLOG 300 UNITS/3 ML VIAL SC PRN (07:54)
[2022-02-09] MEDS ORDERED: Famotidine/PF 20 mg/2ml Vial SLOW IVP SCH (09:00)
[2022-02-09 10:18] LABS: INR-International Normal Ratio 1.3
[2022-02-09 10:19] LABS: PTT 43.7 sec (22.9-36.1)
[2022-02-09 10:32] VITALS: BMI 43.5
[2022-02-09] MEDS: Sodium Chloride 0.9% 1,000 ML IV SCH (10:57)
[2022-02-09] MEDS: Pantoprazole 40 MG VIAL IVP SCH (10:58)
[2022-02-09] MEDS: Piperacillin/Tazobactam 3.375 GM in Sodium Chloride 0.9% 100 ML IVPB SCH ×2 (11:02→20:01)
[2022-02-09] MEDS ORDERED: Sodium Bicarbonate 2.5 MEQ/5 ML VIAL ONE (11:08)
[2022-02-09] MEDS ORDERED: Piperacillin/Tazobactam 3.375 GM in Sodium Chloride 0.9% 100 ML IVPB SCH (12:00)
[2022-02-09] MEDS ORDERED: FLU VACC QS2022-23(6MOS UP)/PF 60 MCG/0.5 ML SYRINGE IM ONE (12:30)
[2022-02-09] MEDS ORDERED: Iopamidol 370 76% 100 ML VIAL ONE (13:15)
[2022-02-09 13:32] LABS: RBC Count-Automated (BF) 40851 /cu.mm; WBC/Nucleated-Auto (BF) 0 /cu.mm
[2022-02-09 13:33] LABS: BF Color Red; Body Fluid Source Abscess Fluid; Clarity Cloudy/Turbid (Clear); Tube # EDTA
[2022-02-09] MEDS: Senokot S 8.6-50 MG TAB PO SCH (20:01)
[2022-02-09] MEDS ORDERED: Sterile Water 10 ML VIAL FS PRN (20:30)
[2022-02-09] MEDS ORDERED: OLANZapine 10 MG VIAL IM SCH (20:30)
[2022-02-10] MEDS: Sodium Chloride 0.9% 1,000 ML IV SCH ×2 (00:39→09:12)
[2022-02-10] MEDS: Piperacillin/Tazobactam 3.375 GM in Sodium Chloride 0.9% 100 ML IVPB SCH ×3 (04:03→20:32)
[2022-02-10 05:58] LABS: #Eosinphils 0.1 thou/uL (0.0-0.7); #Lymphocytes 0.5 thou/uL (1.20-3.40); #Monocytes 0.6 thou/uL (0.11-0.59); #Neutrophils 3.6 thou/uL (1.40-6.50); %Eosinophils 1.1 % (0.0-10.0); %Lymphocytes 9.7 % (21.0-51.0); %Monocytes 12.4 % (0.0-10.0); %Neutrophils 76.9 % (42.0-75.0); Mean Corpuscular HGB CONC 31.2 g/dL (32.0-36.0); Mean Corpuscular Hemoglobin 27.4 pg (27.0-31.0); Mean Corpuscular Volume 87.8 fl (78.0-98.0); Mean Platelet Volume 7.4 fL (7.4-10.4); Platelet Count 315 10x3/uL (130-400); RBC Distribution Width 15.4 % (11.5-14.5); Red Blood Cell (RBC) Count 3.66 mill/uL (4.70-6.10); White Blood Cell (WBC) Count 4.7 10x3/uL (4.8-10.8)
[2022-02-10 06:30] LABS: ALT (SGPT) 14 U/L (8-55); AST (SGOT) 18 U/L (5-34); Albumin 2.8 g/dL (3.5-5.0); Alkaline Phosphatase 79 U/L (40-110); Anion Gap 12 mmol/L (10-20); BUN (Urea Nitrogen) 22 mg/dL (8.4-25.7); Bilirubin, Total 0.7 mg/dL (0.2-1.2); Calc. Creatinine Clearance 155 mL/min (70-130); Calcium 8.2 mg/dL (7.8-10.44); Carbon Dioxide 23 mmol/L (22-29); Chloride 107 mmol/L (98-107); Estimated GFR 99; Globulin 3.8 g/dL (2.4-3.5); Glucose 142 mg/dL (70-105); Potassium 3.7 mmol/L (3.5-5.1); Protein, Total 6.6 g/dL (6.0-8.3); Sodium 138 mmol/L (136-145)
[2022-02-10] MEDS: Polyethylene Glycol 3350 17 GM Packet PO SCH (08:15)
[2022-02-10] MEDS: Senokot S 8.6-50 MG TAB PO SCH ×2 (08:15→20:32)
[2022-02-10] MEDS: Enoxaparin Sodium 40 MG/0.4 ML SYRINGE SC SCH ×2 (09:09→20:32)
[2022-02-10] MEDS: Pantoprazole 40 MG VIAL IVP SCH (09:09)
[2022-02-10] MEDS ORDERED: hydrALAZINE 20 MG/ML VIAL SLOW IVP PRN (12:42)
[2022-02-11] MEDS: Sodium Chloride 0.9% 1,000 ML IV SCH (01:57)
[2022-02-11] MEDS: Piperacillin/Tazobactam 3.375 GM in Sodium Chloride 0.9% 100 ML IVPB SCH ×3 (04:05→20:11)
[2022-02-11 06:13] LABS: #Eosinphils 0.2 thou/uL (0.0-0.7); #Lymphocytes 0.7 thou/uL (1.20-3.40); #Monocytes 0.5 thou/uL (0.11-0.59); #Neutrophils 1.9 thou/uL (1.40-6.50); %Basophils 0.4 % (0.0-1.0); %Eosinophils 6.9 % (0.0-10.0); %Lymphocytes 20.8 % (21.0-51.0); %Monocytes 14.6 % (0.0-10.0); %Neutrophils 57.4 % (42.0-75.0); Hemoglobin 10.3 g/dL (14.0-18.0); Mean Corpuscular HGB CONC 30.3 g/dL (32.0-36.0); Mean Corpuscular Hemoglobin 27.2 pg (27.0-31.0); Mean Corpuscular Volume 89.8 fl (78.0-98.0); Mean Platelet Volume 6.9 fL (7.4-10.4); Platelet Count 329 10x3/uL (130-400); RBC Distribution Width 15.1 % (11.5-14.5); Red Blood Cell (RBC) Count 3.78 mill/uL (4.70-6.10); White Blood Cell (WBC) Count 3.4 10x3/uL (4.8-10.8)
[2022-02-11 06:20] LABS: Anion Gap 9 mmol/L (10-20); BUN (Urea Nitrogen) 21 mg/dL (8.4-25.7); Calc. Creatinine Clearance 158 mL/min (70-130); Calcium 8.5 mg/dL (7.8-10.44); Carbon Dioxide 25 mmol/L (22-29); Chloride 109 mmol/L (98-107); Estimated GFR 100; Glucose 129 mg/dL (70-105); Potassium 3.8 mmol/L (3.5-5.1); Sodium 139 mmol/L (136-145)
[2022-02-11] MEDS: Senokot S 8.6-50 MG TAB PO SCH ×2 (09:14→20:12)
[2022-02-11] MEDS: Polyethylene Glycol 3350 17 GM Packet PO SCH (09:14)
[2022-02-11] MEDS: Enoxaparin Sodium 40 MG/0.4 ML SYRINGE SC SCH ×2 (09:14→20:11)
[2022-02-11] MEDS: Pantoprazole 40 MG VIAL IVP SCH (09:14)
[2022-02-12] MEDS: Piperacillin/Tazobactam 3.375 GM in Sodium Chloride 0.9% 100 ML IVPB SCH ×2 (04:39→11:37)
[2022-02-12 06:37] LABS: Anion Gap 13 mmol/L (10-20); BUN (Urea Nitrogen) 12 mg/dL (8.4-25.7); Calc. Creatinine Clearance 196 mL/min (70-130); Calcium 8.5 mg/dL (7.8-10.44); Carbon Dioxide 20 mmol/L (22-29); Chloride 109 mmol/L (98-107); Estimated GFR 106; Glucose 110 mg/dL (70-105); Potassium 4.1 mmol/L (3.5-5.1); Sodium 138 mmol/L (136-145)
[2022-02-12] MEDS: Enoxaparin Sodium 40 MG/0.4 ML SYRINGE SC SCH (08:44)
[2022-02-12] MEDS: Pantoprazole 40 MG VIAL IVP SCH (08:44)
[2022-02-12] MEDS: Polyethylene Glycol 3350 17 GM Packet PO SCH (08:45)
[2022-02-12] MEDS: Senokot S 8.6-50 MG TAB PO SCH (08:45)
[2022-02-12 10:26] LABS: Hemoglobin 11.3 g/dL (14.0-18.0); Mean Corpuscular HGB CONC 29.5 g/dL (32.0-36.0); Mean Corpuscular Hemoglobin 27.4 pg (27.0-31.0); Platelet Count 215 10x3/uL (130-400); RBC Distribution Width 15.4 % (11.5-14.5); Red Blood Cell (RBC) Count 4.12 mill/uL (4.70-6.10)
[2022-02-12 11:00] LABS: Band 2 % (5-11); Eosinophils 2 % (0-10); Lymphocytes 29 % (21-51); MDiff Complete? YES; Monocytes 6 % (0-10); Neutrophil 61 % (42-75); Platelet Morphology Comment Appears Adequate; RBC Morphology Normal
[2022-02-12 15:27] VITALS: BP 180/77; TEMP 97.8
== END 2022-02-12 16:02 | disposition home or self-care (01) | DRG 391 ==
LOC: ERS 01:59 → SUATTDRO 01:59 → T4-B 10:13
PROVIDERS: ADMIT Internal Medicine; ATTEND Internal Medicine
PROC: 0J9C3ZX Drainage of Pelvic Region Subcutaneous Tissue and Fascia, Percutaneous Approach, Diagnostic (ICD-10-PCS; principal; 2022-02-09)
DX: K57.20 Diverticulitis of large intestine with perforation and abscess without bleeding (principal); K65.1 Peritoneal abscess; K56.0 Paralytic ileus; Z68.41 Body mass index [BMI] 40.0-44.9, adult; Z20.822 Contact with and (suspected) exposure to COVID-19; E11.9 Type 2 diabetes mellitus without complications; I25.10 Atherosclerotic heart disease of native coronary artery without angina pectoris; I50.9 Heart failure, unspecified; I11.0 Hypertensive heart disease with heart failure; E66.9 Obesity, unspecified; Z95.1 Presence of aortocoronary bypass graft; Z79.899 Other long term (current) drug therapy; Z79.01 Long term (current) use of anticoagulants; Z79.84 Long term (current) use of oral hypoglycemic drugs; Z79.82 Long term (current) use of aspirin; Z98.84 Bariatric surgery status; Z98.890 Other specified postprocedural states
CPT/HCPCS: 36415; 36416; 49020; 71045; 74177; 77002; 80048; 80053; 81003; 81015; 83605; 83735; 85025; 85610; 85730; 87070; 87205; 87324; 87449; 89051; 93005; 96365; 96375; C9113; J0360; J1650; J1885; J2405; J2543; J3490; J7050